=== PATIENT | female | born 1965 | race Caucasian/White ===

== ENCOUNTER → 2017-11-19 09:03 | Outpatient (CLI) | payer OTHER, SELFPAY ==
--- NOTE | 2017-11-19 09:07 | MM_ITS ---
MM Dig screening mamm BI w/CAD CAD Screening COMPARISON: Digital mammograms with CAD 10/08/2016 and 01/02/2014 INDICATION: There is no personal or family history of breast cancer TECHNIQUE: Standard CC and MLO images were obtained. R2 CAD reviewed. FINDINGS: Mild scattered fibroglandular densities are seen in the central portions of both breasts. There are couple benign-appearing calcifications in each breast and there is faint arterial calcification in each breast. There is no suspicious lesion and there are no suspicious microcalcifications. There is a stable benign-appearing nodular density left breast lower inner quadrant. IMPRESSION: Stable exam no suspicious lesion seen BI-RADS Category: 2 Benign Finding(s) RECOMMENDED FOLLOW-UP: 1YR - 1 YEAR FOLLOW-UP (A letter has been sent to the patient regarding results of the study.)
== END ==
PROVIDERS: Family Provider Emergency Medicine; PCP Emergency Medicine; Visit Provider Obstetrics & Gynecology
DX: Z12.31 Encounter for screening mammogram for malignant neoplasm of breast (principal)
CPT/HCPCS: 77067

== ENCOUNTER → 2017-11-27 10:04 | Outpatient (CLI) | payer OTHER, SELFPAY ==
--- NOTE | 2017-11-27 10:07 | XR_ITS ---
XR DEXA axial skeleton HISTORY: ITS.REASON: screening ORDERING PHYSICIAN: Shakir Prado MD PATIENT AGE: 52 years COMPARISON: None FINDINGS: The BMD measured at the Forearm Radius 33% is 0.860 g/cm squared with a T score of -0.3. This is considered normal according to the World Health Organization criteria. Fracture risk is low. The density of the left femur as a T score of 3.5. IMPRESSION: Normal bone density with low fracture risk. Suggest follow-up exam November 2019
== END ==
PROVIDERS: Family Provider Emergency Medicine; PCP Emergency Medicine; Visit Provider Obstetrics & Gynecology
DX: Z13.820 Encounter for screening for osteoporosis (principal); Z78.0 Asymptomatic menopausal state
CPT/HCPCS: 77080

== ENCOUNTER → 2017-12-30 12:25 | Outpatient (CLI) | payer OTHER, SELFPAY ==
[2017-12-30 10:58] LABS: Basophils % 0.5 % (0.1-2.0); Eosinophils # 0.2 K/mm3 (0.0-0.4); Eosinophils % 2.8 % (0.1-12.0); Hematocrit 43.7 % (37.0-47.0); Hemoglobin 13.9 g/dL (12.2-16.2); Lymphocytes # 2.6 K/mm3 (0.7-4.5); Lymphocytes % 32.2 K/mm3 (10-50); Mean Corpuscular HGB Conc 31.8 g/dL (31.8-35.4); Mean Platelet Volume 6.9 fl (7.4-10.4); Monocytes # 0.3 K/mm3 (0.1-1.0); Monocytes % 3.2 % (1.7-9.3); Neutrophils % 61.2 % (37.0-80.0); Platelet Count 306 K/mm3 (142-424); Red Blood Count 4.96 M/mm3 (4.20-5.40); Red Cell Distribution Width 14.3 % (11.5-17.5); White Blood Count 8.1 K/mm3 (4.8-10.8)
--- NOTE | 2017-12-30 12:26 | CA_ITS ---
PROCEDURE: 2-D M-mode and color Doppler study INDICATIONS FOR THE TEST: Chest pain COPD Heart MurmurX Tobacco Smoking Palpitations Fatigue Syncope Edema HypertensionXDiabetes MellitusX Rheumatic Fever SOBXDOEXObesityXXHyperlipidemiaX Family History HD Additional History PATIENT INFORMATION HEIGHT: 61 WEIGHT:194 GENDER: Female B/P:130/76 2-D/M-MODE INTERPRETATION: 2-D MEASUREMENTS OBSERVED VALUES IN CMS Right Ventricular Dimension (RVDd) 2.4 Interventricular Septum (Thickness)(IVsd) .9 Left Ventricular Internal Dimensions(LVIDd) 5.4 Left Ventricular Posterior Wall (Thickness)(LVPWd) .8 Aortic Root 2.7 Aortic Cusp Separation 1.7 Left Atrial Dimensions (LAD) 3.6 2D 1. Left atrium is mildly enlarged, left ventricle is normal size, there is mild qualitative concentric left ventricular hypertrophy, visually estimated ejection fraction 55% with no obvious regional wall motion abnormality. 2. The right atrium and right ventricle are normal size and contractility. 3. The aortic valve is minimally thickened and fibrosed. 4. The mitral and tricuspid valvular grossly normal. 5. The pulmonic valve is poorly visualized. 6. No significant pericardial effusion noted. DOPPLER INTERROGATION: Doppler interrogation of the aortic, mitral and tricuspid valvular presence of mild mitral and tricuspid regurgitation, tricuspid and jet velocity is insufficient for calculation of the right ventricular systolic pressure, grade 1 diastolic dysfunction seen with tissue Doppler evidence of raised left atrial pressure. CONCLUSION: 1. Mildly left atrium, normal left ventricular size, mild qualitative concentric left ventricular hypertrophy, visually estimated ejection fraction 55% with no obvious regional wall motion abnormality, grade 1 diastolic dysfunction seen with tissue Doppler evidence of raised left atrial pressure. 2. Mild mitral and tricuspid regurgitation 3. No significant pericardial effusion noted.
[2017-12-30 14:10] LABS: Alanine Aminotransferase 144 U/L (12-78); Albumin Level 3.5 gm/dL (3.4-5.0); Albumin/Globulin Ratio 0.9 (1.1-1.8); Alkaline Phosphatase 116 U/L (46-116); Anion Gap 13.4 mEq/L (5-15); Aspartate Amino Transferase 108 U/L (15-37); Bilirubin,Total 0.4 mg/dL (0.2-1.0); Blood Urea Nitrogen 7 mg/dL (7-18); Carbon Dioxide 26 mmol/L (21.0-32.0); Chloride 104 mmol/L (98-107); Creatinine,Serum 0.73 mg/dL (0.55-1.02); Estimated Glomerular Filt Rate 83 ml/min (>60); Free T4 (Free Thyroxine) 0.88 ng/dl (0.76-1.46); GFR (African American) 101 ML/MIN (>60); Globulin 4.1 gm/dl (1.3-3.2); Glucose 270 mg/dL (74-106); Potassium 4.4 mmoL/L (3.5-5.1); Sodium 139 mmol/L (136-145); Total Protein,Serum 7.6 gm/dL (6.4-8.2)
[2017-12-30 14:27] LABS: Hemoglobin A1C 10.4 % (0.0-7.0)
== END ==
PROVIDERS: Family Provider Emergency Medicine; PCP Emergency Medicine; Visit Provider Internal Medicine
DX: E11.9 Type 2 diabetes mellitus without complications (principal)
CPT/HCPCS: 36415; 80053; 83036; 84439; 84443; 85025; 93306

== ENCOUNTER → 2018-01-18 10:42 | Outpatient (CLI) | payer OTHER, SELFPAY ==
[2018-01-19 09:19] LABS: Hep A Ab, IgM Negative (Negative); Hepatitis B Core Antibody IgM Negative (Negative); Hepatitis B Surface Antigen Negative (Negative)
[2018-01-20 14:49] LABS: Hepatitis C Antibody 0.1 s/co ratio (0.0-0.9)
== END ==
PROVIDERS: PCP Emergency Medicine; Visit Provider Emergency Medicine
DX: R94.5 Abnormal results of liver function studies (principal)
CPT/HCPCS: 36415; 80074

== ENCOUNTER 2018-09-10 08:30 | Outpatient (RCR) | payer OTHER, SELFPAY ==
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
== END 2018-09-10 08:40 | disposition home or self-care (01) ==
LOC: PT 08:30
PROVIDERS: Visit Provider Emergency Medicine
DX: M25.562 Pain in left knee (principal)
CPT/HCPCS: 97010; 97014; 97016; 97033; 97035; 97110; 97163; G0283

== ENCOUNTER 2018-09-11 21:31 | Emergency (ER) | payer OTHER, SELFPAY ==
[2018-09-11 21:54] VITALS: BP 157/76; PULSE 77; RESP 18; TEMP 36.5; O2SAT 98; BMI 30.2
--- NOTE | 2018-09-11 22:03 | XR_ITS ---
XR knee LT 3V HISTORY: Left knee pain ITS.REASON: pain w/ ROM ORDERING PHYSICIAN: Cornelius Mcmanus MD PATIENT AGE: 53 years COMPARISON: Right knee 10/10/2015 FINDINGS: No fracture or dislocation. No lytic or blastic change. Normal mineralization. There is minor spurring of the medial tibial spine and minor joint space narrowing medially. There is mild narrowing of the patellofemoral space with minimal spurring of the superior border patella. There is no effusion. IMPRESSION: Very minor degenerative changes left knee
--- NOTE | 2018-09-11 22:26 | HMH.EDGENADL ---
ED Disposition Clinical Impression: Meniscal injury Qualifiers: Encounter type: initial encounter Laterality: left Qualified Code(s): S83.8X2A - Sprain of other specified parts of left knee, initial encounter Disposition: Home, Self-Care Condition on Discharge: Good Instructions: DI for Knee Pain Additional Instructions: use meds and see pcp and ortho for follow up Prescriptions: predniSONE [Prednisone 20mg Tab] 20 mg PO BID #10 tab Referrals: Cornelius Mcmanus MD [Primary Care Provider] - Jannette Bingham MD [Staff Physician] - - Critical Care Critical Care Time: No Attestation: On 09/11/18, the high probability of a clinically significant, sudden or life threatening deterioration of the following system(s) required my full and direct attention, intervention and personal management. The time I documented below is in addition to time spent performing reported procedures but includes the following listed in this critical care notation. Medical Decision Making - Medical Records Medical records reviewed: Yes: I reviewed the patient's medical records. - Robin Inquiry Pt receiving controlled substance: No Vital Signs: 09/11/18 21:54 Temperature 97.7 F Temperature Source Oral Pulse Rate [Right Brachial] 77 Respiratory Rate 18 Blood Pressure [Right Arm] 157/76 H Blood Pressure Mean [Right Arm] 103 02 Sat by Pulse Oximetry 98 Oxygen Delivery Method Room Air Orders (Tests/Meds): ORDERS Category Date Time Status XR knee LT 3V Stat Exams 09/11/18 22:03 Taken - Radiology Data #1 Image(s): Knee Image Reviewed: Yes I reviewed the patient's radiology image Preliminary Findings: Abnormal, No Fracture Seen General Adult HPI - General Chief complaint: PAIN Stated complaint: pain L knee Time Seen by Provider: 09/11/18 22:05 Mode of Arrival: Wheelchair Source of Information: Patient, Relative, Medical Record Limitations: No Limitations Description of Symptoms (Recalled from ER Triage Doc. by RN): PATIENT HURT HER KNEE APPROX 5 WEEKS AGO; WAS SEEN IN 'S OFFICE, HAD XRAY AND HAS BEEN HAVING PHYSICAL THERAPY 2 TIMES A WEEK FOR 4 WEEKS - History of Present Illness HPI narrative: has pain lt knee over the last few weeks with more pain over the last few days - inc swelling and dec rom - has done physical therapy Onset (ago): day(s) Location: lower extremity Radiation: extremity Severity: moderate Quality: constant Associated symptoms: denies other symptoms Treatments prior to arrival: NSAID - Related Data Home Medications Medication Instructions Recorded Confirmed vit C 150 mg-vit E 30 unit-lutein 1 cap PO QAM 12/23/17 08/09/18 5 [id number] 3 150 mg capsule Aspirin [Low Dose Aspirin EC] 81 mg PO DAILY 01/11/18 08/09/18 Vitamin E Mixed [Vitamin E] 800 unit PO DAILY 01/11/18 08/09/18 naproxen 500 mg tablet 500 mg PO BID 08/09/18 08/09/18 Previous Rx's Medication Instructions Recorded bisoprolol fumarate 10 mg tablet 10 mg PO DAILY 90 Days #90 tab 02/05/18 estradiol 1 mg tablet 1 mg PO DAILY #90 tab 02/05/18 furosemide 20 mg tablet 20 mg PO QAM #90 tab 02/05/18 glipizide 5 mg tablet 2.5 mg PO BID #180 tab 02/05/18 levothyroxine 25 mcg tablet 25 mcg PO DAILY #90 tab 02/05/18 lisinopril 40 mg tablet 40 mg PO DAILY #90 tab 02/05/18 metformin 1,000 mg tablet 1,000 mg PO BID #180 tab 02/05/18 simvastatin 20 mg tablet 20 mg PO QPM #90 tab 02/05/18 spironolactone 25 mg tablet 25 mg PO DAILY #90 tab 02/05/18 triamterene 37.5 1 cap PO QAM #90 cap 02/05/18 mg-hydrochlorothiazide 25 mg capsule venlafaxine ER 75 mg 75 mg PO QHS #90 cap 02/05/18 capsule,extended release 24 hr zinc 50 mg tablet 50 mg PO BID #180 tab 02/05/18 loratadine 10 mg tablet 10 mg PO DAILY #30 tab 07/18/18 predniSONE [Prednisone 20mg 20 mg PO BID #10 tab 09/11/18 Tab] Allergies Allergy/AdvReac Type Severity Reaction Status Date / Time metoprolol [From TOPROL XL] Allergy Unkn
--- NOTE | 2018-09-11 22:32 | ED_ITS ---
ED Disposition Clinical Impression: Meniscal injury Qualifiers: Encounter type: initial encounter Laterality: left Qualified Code(s): S83.8X2A - Sprain of other specified parts of left knee, initial encounter Disposition: Home, Self-Care Condition on Discharge: Good Instructions: DI for Knee Pain Additional Instructions: use meds and see pcp and ortho for follow up Prescriptions: predniSONE [Prednisone 20mg Tab] 20 mg PO BID #10 tab Referrals: Cornelius Mcmanus MD [Primary Care Provider] - Jannette Bingham MD [Staff Physician] - - Critical Care Critical Care Time: No Attestation: On 09/11/18, the high probability of a clinically significant, sudden or life threatening deterioration of the following system(s) required my full and direct attention, intervention and personal management. The time I documented below is in addition to time spent performing reported procedures but includes the following listed in this critical care notation. Medical Decision Making - Medical Records Medical records reviewed: Yes: I reviewed the patient's medical records. - Robin Inquiry Pt receiving controlled substance: No Vital Signs: 09/11/18 21:54 Temperature 97.7 F Temperature Source Oral Pulse Rate [Right Brachial] 77 Respiratory Rate 18 Blood Pressure [Right Arm] 157/76 H Blood Pressure Mean [Right Arm] 103 02 Sat by Pulse Oximetry 98 Oxygen Delivery Method Room Air Orders (Tests/Meds): ORDERS Category Date Time Status XR knee LT 3V Stat Exams 09/11/18 22:03 Taken - Radiology Data #1 Image(s): Knee Image Reviewed: Yes I reviewed the patient's radiology image Preliminary Findings: Abnormal, No Fracture Seen General Adult HPI - General Chief complaint: PAIN Stated complaint: pain L knee Time Seen by Provider: 09/11/18 22:05 Mode of Arrival: Wheelchair Source of Information: Patient, Relative, Medical Record Limitations: No Limitations Description of Symptoms (Recalled from ER Triage Doc. by RN): PATIENT HURT HER KNEE APPROX 5 WEEKS AGO; WAS SEEN IN 'S OFFICE, HAD XRAY AND HAS BEEN HAVING PHYSICAL THERAPY 2 TIMES A WEEK FOR 4 WEEKS - History of Present Illness HPI narrative: has pain lt knee over the last few weeks with more pain over the last few days - inc swelling and dec rom - has done physical therapy Onset (ago): day(s) Location: lower extremity Radiation: extremity Severity: moderate Quality: constant Associated symptoms: denies other symptoms Treatments prior to arrival: NSAID - Related Data Home Medications Medication Instructions Recorded Confirmed vit C 150 mg-vit E 30 unit-lutein 1 cap PO QAM 12/23/17 08/09/18 5 [id number] 3 150 mg capsule Aspirin [Low Dose Aspirin EC] 81 mg PO DAILY 01/11/18 08/09/18 Vitamin E Mixed [Vitamin E] 800 unit PO DAILY 01/11/18 08/09/18 naproxen 500 mg tablet 500 mg PO BID 08/09/18 08/09/18 Previous Rx's Medication Instructions Recorded bisoprolol fumarate 10 mg tablet 10 mg PO DAILY 90 Days #90 tab 02/05/18 estradiol 1 mg tablet 1 mg PO DAILY #90 tab 02/05/18 furosemide 20 mg tablet 20 mg PO QAM #90 tab 02/05/18 glipizide 5 mg tablet 2.5 mg PO BID
[2018-09-11 22:37] VITALS: BP 152/76; PULSE 80; RESP 16; TEMP 36.5; O2SAT 98
== END 2018-09-11 22:44 | disposition home or self-care (01) ==
PROVIDERS: Emergency Provider Emergency Medicine; PCP Emergency Medicine
DX: S83.8X2A Sprain of other specified parts of left knee, initial encounter (principal); E11.9 Type 2 diabetes mellitus without complications; K21.9 Gastro-esophageal reflux disease without esophagitis; I10 Essential (primary) hypertension; Z51.81 Encounter for therapeutic drug level monitoring
CPT/HCPCS: 29505; 73562; 96372; 99283

== ENCOUNTER → 2018-10-15 12:17 | Outpatient (CLI) | payer OTHER, SELFPAY ==
--- NOTE | 2018-10-15 12:51 | MR_ITS ---
MR knee LT wo con Ordering Physician: Alex Navarro MD Patient Age: 53 years: Female HISTORY: ITS.REASON: evaluate for meniscal tear Left knee pain for 6 weeks . Pain is medial and anterior. Swelling at the left knee . No known injury. TECHNIQUE: Multiplanar multisequence imaging performed on 1.5 Jaelyn MRI. COMPARISON :Plain films left knee September 11, 2018 FINDINGS Medial meniscal tear. Prominent defect mid body medial meniscus.. Prominent radial tear withover 5 mm gap here at mid body. This radio tear involving entire width of the meniscus (On sagittalslice 7 and axial slice 18) . There also question be slight anterior displacement of the generous anterior horn sagittal image 10-12. Cannot totally excluded additional displaced meniscal fragment here given the generous volume of this slight anteriorly displaced appearing anterior horn towards anterior meniscal root. Medial compartment: : Diffuse chondral thinning at medial compartment most evident central weightbearing surface- chondral thinning both involving femoral condyle & tibial plateau.... Small osteochondral irregularity with slight increased signal at mid tibial plateau weightbearing surface. Joint effusion. Moderate most evident at suprapatellar bursa Lateral compartment cartilage is fairly well maintained. Lateral meniscus intact no discrete tear Patellofemoral joint. Patella normal position Cartilage fairly well-maintained at posterior patella-although there may be some minimal chondral scuffing midportion patella, at mid aspect of the vertical ridge. Subtle signal variations patellar cartilage may reflect some mild degenerative changes or chondromalacia. ACL and PCL intact. There is an insertional signal irregularity or geode, inferior to the PCL insertion at posterior tibia. Noted but not felt to be of significance. Medial collateral ligament appears intact. Scant edema overlying the MCL Lateral collateral ligament upper normal signal near its femoral insertion but intact. Quadriceps intact. Patellar tendon intact.- There is mild edema and fluid overlying the patellar tendon and tibial tubercle. Most likely deep dependent fluid rather than inflammation but requires correlation. IMPRESSION...... 1. Prominent medial meniscal tear . Prominent radial tear type defect mid body of the medial meniscus. 2. Chondral thinning at the medial compartment both sides the joint-most evident at central weightbearing portion Small osteochondral signal focus noted tibial plateau associated. 3. Moderate joint effusion 4. Other minor observations and comments in text
== END ==
PROVIDERS: PCP Emergency Medicine; Visit Provider Orthopaedic Surgery
DX: M25.562 Pain in left knee (principal); G89.29 Other chronic pain
CPT/HCPCS: 73721

== ENCOUNTER → 2018-11-01 11:15 | Outpatient (CLI) | payer OTHER, SELFPAY ==
--- NOTE | 2018-11-01 11:58 | XR_ITS ---
XR chest 2V HISTORY: Hypertension ITS.REASON: HTN ORDERING PHYSICIAN: Alex Navarro MD PATIENT AGE: 53 years COMPARISON: 01/19/2014 FINDINGS: The cardiomediastinal silhouette and pulmonary vascularity are within normal limits. The lungs are clear without infiltrates, suspicious nodules, or pleural effusions. There is evidence of old granulomatous disease No acute bony abnormalities. IMPRESSION: No change with no acute finding
[2018-11-01 12:35] LABS: Basophils # 0.1 K/mm3 (0-0.2); Basophils % 0.8 % (0.1-2.0); Eosinophils # 0.2 K/mm3 (0.0-0.4); Eosinophils % 2.7 % (0.1-12.0); Hematocrit 40.5 % (37.0-47.0); Hemoglobin 12.9 g/dL (12.2-16.2); Lymphocytes # 3.1 K/mm3 (0.7-4.5); Mean Corpuscular HGB Conc 31.8 g/dL (31.8-35.4); Mean Corpuscular Hemoglobin 27.6 pg (27.0-31.2); Monocytes # 0.4 K/mm3 (0.1-1.0); Monocytes % 4.1 % (1.7-9.3); Neutrophils # 4.9 K/mm3 (1.8-7.8); Neutrophils % 56.4 % (37.0-80.0); Platelet Count 357 K/mm3 (142-424); Red Blood Count 4.66 M/mm3 (4.20-5.40); Red Cell Distribution Width 14.6 % (11.5-17.5); White Blood Count 8.6 K/mm3 (4.8-10.8)
[2018-11-01 13:14] LABS: Anion Gap 14.5 mEq/L (5-15); Blood Urea Nitrogen 10 mg/dL (7-18); Calcium 9.2 mg/dL (8.5-10.1); Carbon Dioxide 27 mmol/L (21.0-32.0); Chloride 105 mmol/L (98-107); Creatinine,Serum 0.88 mg/dL (0.55-1.02); Estimated Glomerular Filt Rate 67 ml/min (>60); GFR (African American) 81 ML/MIN (>60); Glucose 139 mg/dL (74-106); Potassium 4.5 mmoL/L (3.5-5.1); Sodium 142 mmol/L (136-145)
== END ==
PROVIDERS: PCP Emergency Medicine; Visit Provider Orthopaedic Surgery
DX: Z00.00 Encounter for general adult medical examination without abnormal findings (principal); S89.92XS Unspecified injury of left lower leg, sequela
CPT/HCPCS: 36415; 71046; 80048; 83036; 85025

== ENCOUNTER 2018-12-02 12:35 | Outpatient (RCR) | payer OTHER, SELFPAY ==
--- NOTE | 2018-12-02 13:49 | HMH.PTOPEV ---
PT Outpatient Evaluation Rehab PT Outpatient Evaluation Start: 12/02/18 13:38 Freq: Status: Active Protocol: Document 12/02/18 13:38 RA (Rec: 12/02/18 13:49 RA [id number]) Electronically Signed By Durga Powell, PT 12/02/18 13:38 Outpatient Therapy Subjective History Subjective History Patient is a 53 year old female presenting to outpatient PT with reports of L post surgical knee pain S/P L PMM chondroplasty performed on 11/16/18. Pt reports initial onset of knee pain 2 months ago. She woke up with knee pain. Comorbidites include hx of heart murmur, cholecystectomy, hysterectomy, OA and diabetes. Chief Complaint Pain,Stiff,Swelling,Weakness Symptom Type Ache,Sharp,Tingling Symptoms Relieved By Rest/Positioning,Ice Symptoms Aggravated By Standing,Bending/Stooping, Physical Activity,Walking Prior Functional Limitations None Current Functional Limitations Lifting,Housework,Standing, Squatting,Recreation Activity, Walking,Stairs Symptom Description Constant but Variable Level of pain today (0-10) 3 Pain scale - at its best (0-10) 2 Pain scale - at its worst (0-10) 6 Hip/Knee Eval Gait Observation General Gait Pattern Observation Decrease Weight Bear (L) Assistive Device Assistive Devices None / NA Palpation Tenderness left Knee Palpation Finding Tenderness Knee Palpation Overall Comment medial joint line MMT Hip Flexion Strength Grade 4- Good- Hip Abduction Strength Grade 4- Good- Hip Adduction Strength Grade 4- Good- Hip External Rotation Strength Grade 3+ Fair+ Hip Internal Rotation Strength Grade 3+ Fair+ Knee Extension Strength Grade 4- Good- Knee Flexion Strength Grade 4- Good- ROM Hip ROM Reason Not Measured Within Functional Limits Knee Extension Active Range of Motion ( -7 degrees) Knee Flexion Active Range of Motion ( 111 degrees) Special Tests Knee Anterior Drawer Test Negative Left Knee Cast Test Positive Left Knee Anterior Christopher Test Negative Left Knee Pivot Shift Test Negative Left Knee Valgus Stress Test Negative Left Knee Varus Stress Test Negative Left Outpatient Therapy Assessment Impairments Problems/Impairmments Palpation Tenderness,Impaired Range of Motion,Impaired
== END 2018-12-02 12:40 | disposition home or self-care (01) ==
LOC: PT 12:35
PROVIDERS: Visit Provider Orthopaedic Surgery
DX: S83.242D Other tear of medial meniscus, current injury, left knee, subsequent encounter (principal); M17.12 Unilateral primary osteoarthritis, left knee
CPT/HCPCS: 97163

== ENCOUNTER 2019-02-04 15:30 | Outpatient (RCR) | payer OTHER, SELFPAY ==
--- NOTE | 2019-01-10 09:33 | HMH.PTOPEV ---
PT Outpatient Evaluation Rehab PT Outpatient Evaluation Start: 01/10/19 09:02 Freq: Status: Active Protocol: Document 01/10/19 09:26 MAMIE (Rec: 01/10/19 09:33 PHORTINY [id number]) Electronically Signed By Shaggy Medina, PT 01/10/19 09:26 Outpatient Therapy Subjective History Subjective History Pt is 53 yowf who presents with c/o contiuned pain and stiffness ~ 7 wks S/P Left partial medial menisectomy with chondroplasty via arthroscopy. She reports pain is not as bad as it was, but she continues to feel worse with walking and stairs. She ambulates without assistive device, but noticably antalgic gait. She was initially evaluated 38 days ago for therapy, but never returned for treatment. She has PMH of anxiety, DM-II, Gerd, HL, HTN, lung disease, CCY, hysterectomy, and heart murmur . Chief Complaint Pain,Stiff Symptom Type Ache,Sharp Symptoms Relieved By Rest/Positioning Symptoms Aggravated By Walking Prior Functional Limitations Walking,Stairs Current Functional Limitations Walking,Stairs Symptom Description Intermittent,Activity Dependent Level of pain today (0-10) 1 Pain scale - at its worst (0-10) 5 Hip/Knee Eval Gait Observation General Gait Pattern Observation Antalgic Gait,Decrease Weight Bear (L) Palpation Tenderness left Knee Palpation Finding Tenderness Knee Palpation Overall Comment medial and lateral jt line MMT Hip Flexion Strength Grade 4 Good Hip Abduction Strength Grade 4 Good Hip Adduction Strength Grade 4 Good Hip Extension Strength Grade 4 Good Hip External Rotation Strength Grade 4 Good Hip Internal Rotation Strength Grade 4 Good ROM Knee Extension Active Range of Motion ( -4 degrees) Knee Extension Passive Range of Motion ( -2 degrees) Knee Flexion Active Range of Motion ( 4-115 degrees) Knee Flexion Passive Range of Motion ( 2-117 degrees) Outpatient Therapy Assessment Impairments Problems/Impairmments Palpation Tenderness,Impaired Range of Motion,Impaired Strength,Impaired Gait Pattern
== END 2019-02-04 15:35 | disposition home or self-care (01) ==
LOC: PT 15:30
PROVIDERS: Visit Provider Orthopaedic Surgery
DX: M17.12 Unilateral primary osteoarthritis, left knee (principal)
CPT/HCPCS: 97010; 97014; 97110; 97163; G0283

== ENCOUNTER → 2020-08-06 13:58 | Outpatient (CLI) | payer MEDICARE, MEDICAID, SELFPAY ==
[2020-08-06 14:28] LABS: Chloride 99 mmol/L (98-107); Potassium 4.1 mmoL/L (3.5-5.1); Sodium 138 mmol/L (136-145)
[2020-08-06 14:31] LABS: Alanine Aminotransferase 81 U/L (12-78); Albumin/Globulin Ratio 1.1 (1.1-1.8); Alkaline Phosphatase 102 U/L (38-126); Anion Gap 12.1 mEq/L (5-15); Aspartate Amino Transferase 60 U/L (14-36); Bilirubin,Total 0.5 mg/dl (0.2-1.3); Blood Urea Nitrogen 19 mg/dl (7-17); Carbon Dioxide 31 mmol/L (22.0-30.0); Cholesterol 197 mg/dl (140-200); Estimated Glomerular Filt Rate 86 ml/min (>60); GFR (African American) 104 ML/MIN (>60); Globulin 3.5 g/dL (1.3-3.2); Total Protein,Serum 7.5 g/dl (6.3-8.2); Triglycerides 213 mg/dl (30-150); VLDL Cholesterol 43 mg/dL (0-40)
[2020-08-06 14:32] LABS: Calcium 9.9 mg/dl (8.4-10.2); Chol/HDL Ratio 4.8 (1-3.5); Glucose 166 mg/dl (74-100); HDL Cholesterol 41 mg/dl (40-60)
[2020-08-06 14:48] LABS: Basophils # 0.1 K/mm3 (0-0.2); Basophils % 0.6 % (0.1-2.0); Eosinophils # 0.2 K/mm3 (0.0-0.4); Eosinophils % 1.9 % (0.1-12.0); Hematocrit 43.8 % (37.0-47.0); Hemoglobin 14.2 g/dL (12.2-16.2); Lymphocytes # 3.6 K/mm3 (0.7-4.5); Lymphocytes % 40.2 % (10-50); Mean Corpuscular HGB Conc 32.4 g/dL (31.8-35.4); Mean Corpuscular Hemoglobin 28.1 pg (27.0-31.2); Mean Corpuscular Volume 86.7 fl (81-99); Mean Platelet Volume 8.5 fl (7.4-10.4); Monocytes # 0.4 K/mm3 (0.1-1.0); Monocytes % 4.2 % (1.7-9.3); Neutrophils # 4.8 K/mm3 (1.8-7.8); Neutrophils % 53.2 % (37.0-80.0); Platelet Count 366 K/mm3 (142-424); Red Blood Count 5.05 M/mm3 (4.20-5.40); T4 (Thyroxine) 9.3 ug/dl (5.53-11.0)
[2020-08-06 14:50] LABS: Creatinine,Urine Random 105 mg/dL (Not Estab.)
[2020-08-06 15:02] LABS: Thyroid Stimulating Hormone 4.12 uIU/mL (0.465-4.68)
[2020-08-06 15:22] LABS: 25-OH Vitamin D, Total < 12.8 ng/mL (30-100)
[2020-08-06 16:06] LABS: Microalbumin < 6.000 mg/L (0-16.7)
[2020-08-06 17:36] LABS: Hemoglobin A1C > 14.0 % (4.0-6.0)
== END ==
PROVIDERS: Visit Provider Emergency Medicine
DX: E11.9 Type 2 diabetes mellitus without complications (principal); I10 Essential (primary) hypertension; E55.9 Vitamin D deficiency, unspecified; Z79.84 Long term (current) use of oral hypoglycemic drugs
CPT/HCPCS: 80053; 80061; 82043; 82306; 82570; 83036; 84436; 84443; 85025

== ENCOUNTER → 2020-08-10 08:12 | Outpatient (CLI) | payer MEDICARE, MEDICAID, SELFPAY ==
[2020-08-11 13:02] LABS: Hep A Ab, IgM Negative (Negative); Hepatitis B Core Antibody IgM Negative (Negative); Hepatitis B Surface Antigen Negative (Negative)
[2020-08-11 13:42] LABS: Hepatitis C Antibody <0.1 s/co ratio (0.0-0.9)
== END ==
PROVIDERS: Visit Provider Emergency Medicine
DX: R53.83 Other fatigue (principal); R74.8 Abnormal levels of other serum enzymes
CPT/HCPCS: 36415; 80074

== ENCOUNTER → 2020-08-16 09:29 | Outpatient (CLI) | payer MEDICARE, MEDICAID, SELFPAY ==
--- NOTE | 2020-08-16 09:31 | CA_ITS ---
APPROVED REPORT EXAM: Comprehensive 2D, Doppler, and color-flow Echocardiogram Heat Treat Worker: PHYLLIS Voss, RVS Ht: 5 ft 1 in Wt: 177lbs BSA: 1.79 HR: 65 bpm BP: 1161/68 mmHg Indications: SOA, MURMUR, HTN, HLD, 2D Dimensions Aortic Root 2.63 cm LA Volume 54.00 mL Left Atrium 3.51 cm LA Volume Index 30.20 mL/m2 (M/F) 16-34 LVOT 1.87 cm (M/F) 1.5-2.5 M-Mode Dimensions RVDd 2.58 cm (0.9-2.6) LA Diam 3.98 cm (1.9-4.0) LVDd 4.66 cm (3.5-5.7) Ao Diam 2.87 cm (2.0-3.7) LVDs 2.86 cm (3.5-5.7) IVSd 1.07 cm (0.6-1.1) PWd 0.97 cm (0.6-1.1) EF (Teich) 69.00% EPSs 0.68 cm FS 38.60% EDV (Teich) 100.30 mL TAPSE 1.79 (<1.7) ESV (Teich) 31.10 mL LV Diastology E Decel Time 223.00 (160-240 msec) E/A Ratio 1.24 MED E' 7.40 (< 7 cm/sec) MED A' 6.80 cm/s E'/MED E' Ratio 12.82 (>14) LAT E' 10.00 (<10 cm/sec) LAT A' 7.80 cm/s E/LAT E' Ratio 9.49 (>14) Aortic Valve LVOT Max 115.00 (70-110 cm/s) LVOT VTI 25.35 cm AoV Peak Stef. 220.00 (50-130 cm/s) AO Peak GR. 19.40 mmHg AO Mean GR. 10.70 (<5 mmHg) AO VTI 45.03 (18-25 cm) RODRÍGUEZ (VTI) 1.55 (2.5-4.5 cm2) Mitral Valve MV E Max Stef. 95.00 (40-130 cm/s) MV A Velocity 76.00 (40-130 cm/s) E/A Ratio 1.24 MV Decel. Time 223.00 (160-240 ms) MV Mean Gr. 1.80 (<2mmHg) MV PHT 65.00 ms Pulmonary Valve PV Peak Velocity 79.00 (50-150 cm/s) MI End VMAX 244.00 cm/s Tricuspid Valve TR P. Velocity 260.00 cm/s RAP Estimate 10.00 mmHg RVSP 37.00 mmHg Left Ventricle Left atrium is mildly enlarged, left ventricle is normal size, mild concentric left ventricular hypertrophy, visually estimated ejection fraction 55% with no regional wall motion abnormality, grade 1 diastolic dysfunction seen without tissue Doppler evidence of raise left atrial pressure. Right Ventricle Right atrium and right ventricle are normal size and contractility. Aortic Valve Aortic valve is thickened and calcified with mild restriction in the leaflet mobility, mean gradient across valve is 11 mmHg, valve area 1.6 cm??? represents mild aortic stenosis. There is no aortic insufficiency. Mitral Valve Mitral valve grossly normal, there is trace mitral regurgitation. Tricuspid Valve Tricuspid grossly normal, there is trace tricuspid regurgitation. Pulmonic Valve Pulmonic valve is poorly visualized. Great Vessels Aortic root is normal size. Pericardium No significant pericardial effusion noted. Conclusion 1. Mildly enlarged left atrium, normal left ventricular size, mild concentric left ventricular hypertrophy, visually estimated ejection fraction 55% with no regional wall motion abnormality, grade 1 diastolic dysfunction seen without tissue Doppler evidence of raise left atrial pressure. 2. Thickened and calcified aortic valve with mild aortic stenosis, valve area is 1.6 cm???. There is no aortic insufficiency. 3. Trace mitral and tricuspid regurgitation. 4. No significant pericardial effusion noted. Electronically signed by : Michael Luong, 08/16/2020 16:51:41
--- NOTE | 2020-08-16 09:35 | MM_ITS ---
PROCEDURE: MM DIG SCREENING MAMM BI W/CAD Digital Breast Tomosynthesis Included CLINICAL INDICATION: breast cancer screening There is no personal or family history of breast cancer. There has been a previous biopsy left breast for benign disease. The patient currently is on estrogen. COMPARISON: [facility] DIG MAMM-SCREEN MERON from 01/02/2014 MG [facility] DIG MAMM-SCREEN [facility]ON W/CAD from 10/08/2016 [facility] MM Dig screening mamm BI w/CAD from 11/19/2017 TECHNIQUE: Standard CC and MLO images and 3D Tomosynthesis was obtained. R2 CAD reviewed. FINDINGS: Moderate scattered fibroglandular densities are seen in both breast. There has been some fatty replacement of the breast parenchyma since the previous exams. There are couple of benign calcifications in each breast and there is arterial calcification in each breast. There are no CAD markings. There is no suspicious lesion in either breast and no suspicious microcalcifications. IMPRESSION: Fibrofatty parenchyma with no suspicious lesions seen BI-RAD Category: 2 Benign Finding(s) FOLLOW-UP: 1YR 1 Year Follow-up (A letter has been sent to the patient regarding results of the study.) Dictated by: Dr. Jaron Menendez MD 08/18/2020 14:09 Dr. Jaron Menendez MD in [place] 08/18/2020 14:09
== END ==
PROVIDERS: PCP Emergency Medicine; Visit Provider Emergency Medicine
DX: Z12.31 Encounter for screening mammogram for malignant neoplasm of breast (principal); R06.02 Shortness of breath; I10 Essential (primary) hypertension
CPT/HCPCS: 77063; 77067; 93306

== ENCOUNTER → 2020-12-04 08:47 | Outpatient (CLI) | payer MEDICAID, SELFPAY ==
[2020-12-04 09:23] LABS: Basophils # 0.1 K/mm3 (0-0.2); Eosinophils # 0.3 K/mm3 (0.0-0.4); Eosinophils % 3.1 % (0.1-12.0); Hematocrit 42.1 % (37.0-47.0); Hemoglobin 13.9 g/dL (12.2-16.2); Lymphocytes # 2.9 K/mm3 (0.7-4.5); Lymphocytes % 36.4 % (10-50); Mean Corpuscular Hemoglobin 29.4 pg (27.0-31.2); Mean Platelet Volume 7.6 fl (7.4-10.4); Monocytes # 0.3 K/mm3 (0.1-1.0); Monocytes % 3.3 % (1.7-9.3); Neutrophils # 4.5 K/mm3 (1.8-7.8); Neutrophils % 56.2 % (37.0-80.0); Platelet Count 303 K/mm3 (142-424); Red Blood Count 4.73 M/mm3 (4.20-5.40); Red Cell Distribution Width 14.1 % (11.5-17.5); White Blood Count 7.9 K/mm3 (4.8-10.8)
[2020-12-04 10:03] LABS: Chloride 102 mmol/L (98-107); Potassium 3.9 mmoL/L (3.5-5.1); Sodium 140 mmol/L (136-145)
[2020-12-04 10:05] LABS: Alanine Aminotransferase 94 U/L (12-78); Albumin Level 4.2 g/dl (3.5-5.0); Albumin/Globulin Ratio 1.3 (1.1-1.8); Alkaline Phosphatase 111 U/L (38-126); Anion Gap 12.9 mEq/L (5-15); Aspartate Amino Transferase 77 U/L (14-36); Bilirubin,Total 0.7 mg/dl (0.2-1.3); Blood Urea Nitrogen 8 mg/dl (7-17); Carbon Dioxide 29 mmol/L (22.0-30.0); Estimated Glomerular Filt Rate 103 ml/min (>60); GFR (African American) 125 ML/MIN (>60); Globulin 3.3 g/dL (1.3-3.2); Total Protein,Serum 7.5 g/dl (6.3-8.2)
[2020-12-04 10:06] LABS: Chol/HDL Ratio 4.6 (1-3.5); Cholesterol 188 mg/dl (140-200); Glucose 315 mg/dl (74-100); HDL Cholesterol 41 mg/dl (40-60); Triglycerides 196 mg/dl (30-150); VLDL Cholesterol 39 mg/dL (0-40)
[2020-12-04 10:17] LABS: Direct LDL Cholesterol 97.75 mg/dL (100-129)
[2020-12-04 10:23] LABS: 25-OH Vitamin D, Total 24.6 ng/mL (30-100)
[2020-12-04 10:37] LABS: Thyroid Stimulating Hormone 3.44 uIU/mL (0.465-4.68)
[2020-12-05 11:38] LABS: C-Peptide 3.3 ng/mL (1.1-4.4)
== END ==
PROVIDERS: Visit Provider Nurse Practitioner Family
DX: I11.9 Hypertensive heart disease without heart failure (principal); E11.9 Type 2 diabetes mellitus without complications; E78.5 Hyperlipidemia, unspecified; E55.9 Vitamin D deficiency, unspecified; E66.9 Obesity, unspecified; Z68.34 Body mass index [BMI] 34.0-34.9, adult; Z79.84 Long term (current) use of oral hypoglycemic drugs
CPT/HCPCS: 36415; 80053; 80061; 82306; 83036; 84436; 84443; 84681; 85025

== ENCOUNTER → 2021-02-20 06:19 | Outpatient (CLI) | payer SELFPAY ==
--- NOTE | 2021-02-20 06:21 | CT_ITS ---
PROCEDURE: CT HEART W CALCIUM SCORE CLINICAL HISTORY: CP/dyspnea COMPARISON: CT ABDPELW/O CT ABD PELVIS W/O CONTRAST from 01/10/2014 TECHNIQUE: Axial images obtained with sagittal and coronal reformats. All CT scans at the facility use one or more dose reduction, viz: automated exposure control, ma/kV adjustment per patient size (including targeted exams where dose is matched to indication, i.e. head), or iterative reconstruction technique. FINDINGS: The coronary artery calcium score is 2. Minimal calcific plaque burden with low cardiovascular disease risk. There is a small hiatal hernia. Minimal aortic valve calcification noted. There is minimal nodularity in the left CP angle measuring 5 mm nonspecific and may be due to an area of scarring not significantly changed from 01/10/2014. There are degenerative changes in the thoracic spine with spurring anteriorly IMPRESSION: Minimal calcific plaque burden with low cardiovascular disease risk Dictated by: Clemente Ybarra MD 02/20/2021 17:24 Clemente Ybarra MD in [place] 02/20/2021 17:24
--- NOTE | 2021-02-20 06:23 | CA_ITS ---
APPROVED REPORT Exam: Pharmacologic Technologist: Dalia Bergman, Ht: 5 ft 1 in Wt: 181 lbs BSA: 1.81 m2 HR: 55 bpm BP: 194/71 mmHg Medical History Medications: Levothyroxine,,,,, Simvastatin,,,,, Glipizide,,,,, Estradiol,,,,, SpirOLACTONE,,,,, Norvasc,,,,, Januvia,,,,, Bisprolol,,,,, LoraTADINE,,,,, TrULicity,,,,, VenlaDFAXINE,,,,, Furosemide,,,,, Stress Test Details Test: LEXISCAN HR Resting HR: 61 bpm Max Heart Rate (APMHR): 162.663186 bpm Max HR Achieved: 111 bpm Target HR (85% APMHR): 137.085126 bpm % of APMHR: 68.52 Recovery HR: 80 bpm BP Resting BP: 194/71 mmHg Max BP: 194/71 mmHg Recovery BP: 172.0/80.0 mmHg ECG Resting ECG: Sinus hermann, NS T wave abns in anterolateral leads Clinical Exercise duration: 04:00 min Highest Stage Achieved: Exercise capacity: 1.0 METs Stress ECG Conclusion Symptoms: SOA, lightheaded. No CP. Arrythmias/Ectopy: None. ST-T Changes: NS T wave changes inferiorly. Conclusion: Unremarkable Lexiscan stress. Myoview images reported separately. Test Summary REST . . . . . . . Resting REST 02:58 . . 61 . 194/ 71 . . Stage 1 . . . . . . . Cardiolite injected Stage 1 01:00 . . 100 . . . . Stage 2 01:00 . . 107 . 194/ 92 . . Stage 3 01:00 . . 93 . 184/ 93 . . Stage 4 01:00 . . 87 . 161/ 85 . Stop exercise at 04:00 RECOVERY 01:00 . . 88 . . . . RECOVERY 02:00 . . 90 . 160/ 84 . . RECOVERY 03:00 . . 82 . 160/ 84 . . RECOVERY 03:20 . . 81 . 172/ 80 . . Electronically signed by : Michael Luong MD 02/21/2021 10:52:21
--- NOTE | 2021-02-20 06:23 | NM_ITS ---
APPROVED REPORT Exam: Nuclear Stress Test Indication: HTN, D.M., HYPERLIPIDEMIA, FM HX., C.P., SOB, PALPITATIONS, SYNCOPE, FATIGUE Patient Location: Outpatient Stress Tech: [facility] Tech:Alexandra Contreras, ARRT RT (R)(N)(M) Ht: 5 ft 1 in Wt: 164 lbs Bra Size: 40D HR: 55 bpm BP: 194/71 mmHg BSA: 1.74 m2 BMI: 30.9 History: HTN, D.M., HYPERLIPIDEMIA, FM HX., C.P., SOB, PALPITATIONS, SYNCOPE, FATIGUE Procedure: Patient received a 0.4 mg of intravenous Lexiscan, resting heart rate 55 bpm, resting blood pressure 194/71 mmHg, with Lexiscan maximum heart rate achived was 107 bpm which is Less than 85 % of the maximum predicted heart rate and blood pressure was 194/92 mmHg. With Lexiscan, patient denied any complaint of chest pain. Electrocardiogram Resting electrocardiogram showed sinus rhythm nonspecific ST-T changes, with Lexiscan there is less than 1.[address] segment depression noted from the baseline EKG. The EKG portion of the Lexiscan is nondiagnostic. Cardiac Stress and Resting SPECT Images: Cardiac Stress and Resting SPECT images were obtained using technetium 99m Myoview 30.0 mCi stress and 10.89 mCi at rest. Gated SPECT for analysis of segmental wall motion and calculation of the ejection fraction also done. Prone images were also obtained. Cardiac stress and resting SPECT images show uniform myocardial activity without segmental perfusion abnormality, computer derived ejection fraction is 61% with no regional wall motion abnormality, right ventricle is normal size and contractility. Conclusion: 1. The EKG portion of the Lexiscan is nondiagnostic. 2. No scintigraphic evidence of reversible ischemia seen, computer derived ejection fraction 61% with no regional wall motion abnormality, right ventricle is normal size and contractility. 3. Normal Lexiscan Myoview study. Electronically signed by : Michael Luong MD 02/21/2021 10:55:38
--- NOTE | 2021-02-20 08:53 | HMH.ITSHM ---
Current Home Medications as stated by this patient Hailey Casetllanos or merchandising representative. []ZINC VITAMIN C VENLAFAXINE SPIRONOLACTONE SITAGLIPTIN SIMVASTATIN LEVOTHYROXINE GLIPIZIDE FUROSEMIDE ESTRADIOL VITAMIN D2 DULAGLUTIDE VITAMIN D3 BISOPROLOL AMLODIPINE VITAMIN E LORATADINE
== END ==
PROVIDERS: PCP Emergency Medicine; Visit Provider Internal Medicine Cardiovascular Disease
DX: Z13.6 Encounter for screening for cardiovascular disorders (principal)
CPT/HCPCS: 75571; 78452; 93017; A9502; J2785

== ENCOUNTER → 2021-02-20 06:26 | Outpatient (CLI) | payer MEDICAID, SELFPAY ==
--- NOTE | 2021-02-20 06:27 | CA_ITS ---
APPROVED REPORT Wastewater Project Engineer: Keri Woods RCS, RVS Laterality: Bilateral Study Quality: Fair Indications: bruits Risk Factors Hypertension: Hyperlipidemia Doppler Spectral Velocity Analysis ECA (R) 86.60/12.30 cm/s ECA (L) 59.90/7.00 cm/s dICA (R) 73.20/27.80 cm/s dICA (L) 116.00/36.70 cm/s Kiesha (R) 63.60/18.20 cm/s Kiesha (L) 54.00/18.70 cm/s pICA (R) 48.20/9.20 cm/s pICA (L) 66.80/10.20 cm/s dCCA (R) 45.40/9.10 cm/s dCCA (L) 69.50/11.20 cm/s pCCA (R) 63.60/7.00 cm/s pCCA (L) 89.30/15.50 cm/s Vert (R) 33.70/9.10 cm/s Vert (L) 34.40/10.50 cm/s ICA/CCA 1.15 ICA/CCA 1.30 Findings Duplex evaluation demonstrates stenosis of the right proximal internal carotid artery <20% with PSV <140 cm/sec, EDV <100 cm/sec, and IC/CC Ratio <4.0. Duplex evaluation demonstrates stenosis of the left proximal internal carotid artery <20% with PSV <140 cm/sec, EDV <100 cm/sec, and IC/CC Ratio <4.0. Duplex evaluation demonstrates antegrade flow of the bilateral Vertebral Arteries. Conclusion Duplex evaluation demonstrates stenosis of the right proximal internal carotid artery <20% with PSV <140 cm/sec, EDV <100 cm/sec, and IC/CC Ratio <4.0. Duplex evaluation demonstrates stenosis of the left proximal internal carotid artery <20% with PSV <140 cm/sec, EDV <100 cm/sec, and IC/CC Ratio <4.0. Duplex evaluation demonstrates antegrade flow of the bilateral Vertebral Arteries. Electronically signed by : Clemente Ybarra MD 02/20/2021 17:10:33
== END ==
PROVIDERS: PCP Emergency Medicine; Visit Provider Internal Medicine Cardiovascular Disease
DX: R09.89 Other specified symptoms and signs involving the circulatory and respiratory systems (principal)
CPT/HCPCS: 78452; 93017; 93880; A9502; J2785

== ENCOUNTER → 2021-07-15 16:00 | Outpatient (CLI) | payer MEDICAID, SELFPAY ==
[2021-07-15 13:21] LABS: Basophils # 0.1 K/mm3 (0-0.2); Basophils % 0.7 % (0.1-2.0); Eosinophils # 0.3 K/mm3 (0.0-0.4); Eosinophils % 2.9 % (0.1-12.0); Hematocrit 44.1 % (37.0-47.0); Hemoglobin 14.5 g/dL (12.2-16.2); Lymphocytes # 3.3 K/mm3 (0.7-4.5); Lymphocytes % 38.4 % (10-50); Mean Corpuscular HGB Conc 32.9 g/dL (31.8-35.4); Mean Corpuscular Hemoglobin 29.4 pg (27.0-31.2); Mean Corpuscular Volume 89.6 fl (81-99); Mean Platelet Volume 7.4 fl (7.4-10.4); Monocytes # 0.3 K/mm3 (0.1-1.0); Neutrophils # 4.7 K/mm3 (1.8-7.8); Platelet Count 374 K/mm3 (142-424); Red Blood Count 4.93 M/mm3 (4.20-5.40); White Blood Count 8.5 K/mm3 (4.8-10.8)
[2021-07-15 13:50] LABS: Chloride 101 mmol/L (98-107); Potassium 4.2 mmoL/L (3.5-5.1); Sodium 133 mmol/L (136-145)
[2021-07-15 13:53] LABS: Alanine Aminotransferase 82 U/L (12-78); Albumin Level 4.2 g/dl (3.5-5.0); Albumin/Globulin Ratio 1.3 (1.1-1.8); Alkaline Phosphatase 91 U/L (38-126); Anion Gap 11.2 mEq/L (5-15); Aspartate Amino Transferase 75 U/L (14-36); Bilirubin,Total 0.6 mg/dl (0.2-1.3); Blood Urea Nitrogen 12 mg/dl (7-17); Carbon Dioxide 25 mmol/L (22.0-30.0); Estimated Glomerular Filt Rate 86 ml/min (>60); GFR (African American) 104 ML/MIN (>60); Globulin 3.3 g/dL (1.3-3.2); Glucose 231 mg/dl (74-100); Total Protein,Serum 7.5 g/dl (6.3-8.2)
[2021-07-15 14:13] LABS: Hemoglobin A1C 11.7 % (4.0-6.0)
[2021-07-15 14:24] LABS: Thyroid Stimulating Hormone 2.09 uIU/mL (0.465-4.68)
[2021-07-15 15:46] LABS: T4 (Thyroxine) 9.4 ug/dl (5.53-11.0)
[2021-07-17 09:13] LABS: Hep A Ab, IgM Negative (Negative); Hepatitis B Core Antibody IgM Negative (Negative); Hepatitis B Surface Antigen Negative (Negative); Hepatitis C Antibody <0.1 s/co ratio (0.0-0.9)
== END ==
PROVIDERS: Visit Provider Emergency Medicine
DX: E11.9 Type 2 diabetes mellitus without complications (principal); R79.89 Other specified abnormal findings of blood chemistry; Z79.84 Long term (current) use of oral hypoglycemic drugs
CPT/HCPCS: 80053; 80074; 82043; 83036; 84436; 84443; 85025

== ENCOUNTER → 2021-07-30 08:20 | Outpatient (CLI) | payer MEDICAID, SELFPAY ==
--- NOTE | 2021-07-30 08:20 | US_ITS ---
FINAL REPORT CLINICAL HISTORY: elevated liver enzymes and fatty liver FINDINGS: Sonographic images of the right upper quadrant were obtained. The pancreas is partially obscured. The liver has increased echogenicity consistent with fatty infiltration. The gallbladder surgically absent. There is no evidence of biliary ductal dilatation.The common duct measures 4mm. Limited images of the right kidney are unremarkable. IMPRESSION: Fatty infiltrated liver. Cholecystectomy. Reviewed, Interpreted and Dictated by Sam Mirza III, MD Transcribed by Nadja Beth Authenticated by Sam Mirza III, MD on 07/30/2021 12:48:56 PM [facility]
== END ==
PROVIDERS: PCP Emergency Medicine; Visit Provider Emergency Medicine
DX: K76.0 Fatty (change of) liver, not elsewhere classified (principal); R74.8 Abnormal levels of other serum enzymes
CPT/HCPCS: 76705

== ENCOUNTER → 2021-08-30 12:49 | Outpatient (CLI) | payer MEDICAID, SELFPAY ==
[2021-08-30 12:54] LABS: Microscopic, Urine URINE MICROSCOPIC (MICROSCOPIC)
[2021-08-30 13:33] LABS: Basophils # 0.2 K/mm3 (0-0.2); Basophils % 1.5 % (0.1-2.0); Eosinophils # 0.2 K/mm3 (0.0-0.4); Eosinophils % 1.6 % (0.1-12.0); Hematocrit 47.5 % (37.0-47.0); Hemoglobin 15.3 g/dL (12.2-16.2); Lymphocytes # 3.1 K/mm3 (0.7-4.5); Lymphocytes % 26.8 % (10-50); Mean Corpuscular HGB Conc 32.1 g/dL (31.8-35.4); Mean Corpuscular Hemoglobin 29.1 pg (27.0-31.2); Mean Corpuscular Volume 90.4 fl (81-99); Mean Platelet Volume 7.4 fl (7.4-10.4); Monocytes # 0.5 K/mm3 (0.1-1.0); Monocytes % 3.9 % (1.7-9.3); Neutrophils # 7.6 K/mm3 (1.8-7.8); Neutrophils % 66.2 % (37.0-80.0); Platelet Count 397 K/mm3 (142-424); Red Blood Count 5.25 M/mm3 (4.20-5.40); Red Cell Distribution Width 14.6 % (11.5-17.5); White Blood Count 11.5 K/mm3 (4.8-10.8)
[2021-08-30 14:53] LABS: Albumin Level 4.2 g/dl (3.5-5.0); Anion Gap 13.1 mEq/L (5-15); Blood Urea Nitrogen 26 mg/dl (7-17); Calcium 9.5 mg/dl (8.4-10.2); Carbon Dioxide 29 mmol/L (22.0-30.0); Chloride 97 mmol/L (98-107); Estimated Glomerular Filt Rate 57 ml/min (>60); GFR (African American) 69 ML/MIN (>60); Glucose 263 mg/dl (74-100); Phosphorous 4.7 mg/dl (2.5-4.5); Potassium 4.1 mmoL/L (3.5-5.1); Sodium 135 mmol/L (136-145)
[2021-08-30 15:12] LABS: 25-OH Vitamin D, Total 25.2 ng/mL (30-100)
[2021-08-30 15:18] LABS: Creatinine,Urine Random 111 mg/dL (Not Estab.); Total Protein,Urine Random < 5.0 mg/dL (0.0-12.0)
[2021-08-30 15:23] LABS: Appearance,Urine CLEAR (Clear); Bacteria,Urine Trace /lpf; Bilirubin,Urine Negative (Negative); Blood, Urine Negative (Negative); Color,Urine YELLOW (Yellow); Glucose,Urine (UA) 3+ (Negative); Ketones,Urine Negative (Negative); Leukocyte Esterase,Urine Negative (Negative); Mucus,Urine Trace /lpf; Nitrate,Urine Negative (Negative); Protein,Urine Negative (Negative); Specific Gravity, Urine 1.015 (1.005-1.030); Urobilinogen,Urine 0.2 EU/dl (0.2); WBC,Urine Occasional #/hpf (0-3)
[2021-08-30 15:27] LABS: Microalbumin < 6.000 mg/L (0-16.7)
== END ==
PROVIDERS: PCP Emergency Medicine; Visit Provider Internal Medicine Nephrology
DX: R80.9 Proteinuria, unspecified (principal); E55.9 Vitamin D deficiency, unspecified
CPT/HCPCS: 36415; 80069; 81001; 82043; 82306; 82570; 83970; 84155; 85025

== ENCOUNTER → 2021-09-02 13:26 | Outpatient (POV) | payer MEDICAID, SELFPAY | PROVIDERS: Visit Provider Internal Medicine Nephrology | DX: Z00.00 Encounter for general adult medical examination without abnormal findings (principal) ==

== ENCOUNTER → 2021-10-15 10:08 | Outpatient (CLI) | payer MEDICAID, SELFPAY ==
--- NOTE | 2021-10-15 10:09 | MM_ITS ---
PROCEDURE INFORMATION: Exam: MG Bilateral Screening 3D Mammography Exam date and time: 10/15/2021 10:36 AM Age: 56 years old Clinical indication: Screening examination no family history of breast cancer. TECHNIQUE: Imaging protocol: Bilateral Screening tomosynthesis and 2D mammography including computer-aided detection (CAD) when performed. COMPARISON: 1. MG MM DIG SCREENING MAMM BI W/CAD 08/16/2020 9:35 AM 2. MG SCBI MM Dig screening mamm BI w/CAD 11/19/2017 9:19 AM 3. MG DMSB DIG MAMM-SCREEN MERON W/CAD 10/08/2016 9:11 AM 4. MG DMSB DIG MAMM-SCREEN MERON 01/02/2014 3:26 PM FINDINGS: MAMMOGRAPHY: Breast composition: There are scattered areas of fibroglandular density. Mass: No suspicious mass. Architectural distortion: None. Calcifications: No suspicious calcifications. Asymmetric density: None. Skin thickening: None. Axillary adenopathy: None. IMPRESSION: No mammographic evidence of malignancy. Annual screening is recommended unless otherwise clinically indicated. ASSESSMENT: BI-RADS Category 1: Negative
== END ==
PROVIDERS: PCP Nurse Practitioner Family; Visit Provider Nurse Practitioner Family
DX: Z12.31 Encounter for screening mammogram for malignant neoplasm of breast (principal)
CPT/HCPCS: 77063; 77067

== ENCOUNTER → 2021-11-13 09:07 | Outpatient (CLI) | payer MEDICAID, SELFPAY ==
[2021-11-12 20:09] LABS: Alanine Aminotransferase 99 U/L (12-78); Albumin Level 3.7 g/dl (3.5-5.0); Albumin/Globulin Ratio 1.1 (1.1-1.8); Alkaline Phosphatase 95 U/L (38-126); Anion Gap 15.6 mEq/L (5-15); Aspartate Amino Transferase 92 U/L (14-36); Blood Urea Nitrogen 12 mg/dl (7-17); Calcium 9.4 mg/dl (8.4-10.2); Carbon Dioxide 24 mmol/L (22.0-30.0); Chloride 96 mmol/L (98-107); Estimated Glomerular Filt Rate 86 ml/min (>60); GFR (African American) 104 ML/MIN (>60); Globulin 3.3 g/dL (1.3-3.2); Potassium 4.6 mmoL/L (3.5-5.1); Sodium 131 mmol/L (136-145)
[2021-11-12 20:13] LABS: Bilirubin,Total < 0.1 mg/dl (0.2-1.3); Glucose 554 mg/dl (74-100)
[2021-11-12 20:14] LABS: Hemoglobin A1C 11.1 % (4.0-6.0)
== END ==
PROVIDERS: PCP Emergency Medicine; Visit Provider Emergency Medicine
DX: E11.9 Type 2 diabetes mellitus without complications (principal); Z79.84 Long term (current) use of oral hypoglycemic drugs
CPT/HCPCS: 80053; 83036

== ENCOUNTER → 2022-01-15 18:08 | Outpatient (CLI) | payer MEDICAID, SELFPAY ==
[2022-01-15 14:27] LABS: Influenza A, PCR Not Detected (NotDetected); Influenza B, PCR Not Detected (NotDetected)
[2022-01-15 14:40] LABS: Basophils # 0.1 K/mm3 (0-0.2); Basophils % 1.1 % (0.1-2.0); Eosinophils # 0.3 K/mm3 (0.0-0.4); Eosinophils % 2.8 % (0.1-12.0); Hematocrit 40.4 % (37.0-47.0); Hemoglobin 13.4 g/dL (12.2-16.2); Lymphocytes # 3.3 K/mm3 (0.7-4.5); Lymphocytes % 34.8 % (10-50); Mean Corpuscular HGB Conc 33.2 g/dL (31.8-35.4); Mean Corpuscular Hemoglobin 29.6 pg (27.0-31.2); Mean Corpuscular Volume 89.3 fl (81-99); Mean Platelet Volume 8.9 fl (7.4-10.4); Monocytes # 0.3 K/mm3 (0.1-1.0); Monocytes % 3.6 % (1.7-9.3); Neutrophils # 5.6 K/mm3 (1.8-7.8); Neutrophils % 57.8 % (37.0-80.0); Platelet Count 456 K/mm3 (142-424); Red Blood Count 4.53 M/mm3 (4.20-5.40); Red Cell Distribution Width 14.8 % (11.5-17.5); White Blood Count 9.6 K/mm3 (4.8-10.8)
[2022-01-15 14:43] LABS: Alanine Aminotransferase 77 U/L (12-78); Albumin Level 3.9 g/dl (3.5-5.0); Albumin/Globulin Ratio 1.1 (1.1-1.8); Alkaline Phosphatase 98 U/L (38-126); Anion Gap 11.9 mEq/L (5-15); Aspartate Amino Transferase 96 U/L (14-36); Blood Urea Nitrogen 12 mg/dl (7-17); Calcium 9.3 mg/dl (8.4-10.2); Carbon Dioxide 31 mmol/L (22.0-30.0); Chloride 100 mmol/L (98-107); Chol/HDL Ratio 4.9 (1-3.5); Cholesterol 197 mg/dl (140-200); Estimated Glomerular Filt Rate 86 ml/min (>60); GFR (African American) 104 ML/MIN (>60); Globulin 3.5 g/dL (1.3-3.2); Glucose 293 mg/dl (74-100); HDL Cholesterol 40 mg/dl (40-60); Potassium 3.9 mmoL/L (3.5-5.1); Sodium 139 mmol/L (136-145); Total Protein,Serum 7.4 g/dl (6.3-8.2); Triglycerides 181 mg/dl (30-150); VLDL Cholesterol 36 mg/dL (0-40)
[2022-01-15 14:50] LABS: Bilirubin,Total < 0.1 mg/dl (0.2-1.3)
[2022-01-15 15:00] LABS: 25-OH Vitamin D, Total 21.3 ng/mL (30-100); Free T4 (Free Thyroxine) 0.95 ng/dl (0.78-2.19)
[2022-01-15 15:13] LABS: Coronavirus 19, PCR Detected (NotDetected)
[2022-01-15 15:15] LABS: Thyroid Stimulating Hormone 2.21 uIU/mL (0.465-4.68)
[2022-01-17 10:09] LABS: Direct LDL Cholesterol 113 mg/dL (100-129)
== END ==
PROVIDERS: PCP Emergency Medicine; Visit Provider Emergency Medicine
DX: U07.1 COVID-19 (principal); E11.9 Type 2 diabetes mellitus without complications; R09.81 Nasal congestion; E55.9 Vitamin D deficiency, unspecified; Z79.84 Long term (current) use of oral hypoglycemic drugs
CPT/HCPCS: 80053; 80061; 82306; 83036; 84439; 84443; 85025; C9803; U0003; U0005

== ENCOUNTER → 2022-03-21 09:59 | Outpatient (CLI) | payer MEDICAID, SELFPAY ==
[2022-03-21 10:54] LABS: Alanine Aminotransferase 50 U/L (12-78); Albumin Level 3.8 g/dl (3.5-5.0); Alkaline Phosphatase 125 U/L (38-126); Aspartate Amino Transferase 56 U/L (14-36); Bilirubin,Direct 0.1 mg/dl (0.0-0.4); Bilirubin,Indirect 0.2 mg/dL (0.0-0.9); Bilirubin,Total 0.3 mg/dl (0.2-1.3); Bilirubin,Unconjugated 0.2 mg/dL (0.0-1.1); Chol/HDL Ratio 3.9 (1-3.5); Cholesterol 179 mg/dl (140-200); HDL Cholesterol 46 mg/dl (40-60); Total Protein,Serum 7.1 g/dl (6.3-8.2); Triglycerides 145 mg/dl (30-150); VLDL Cholesterol 29 mg/dL (0-40)
[2022-03-21 11:05] LABS: Direct LDL Cholesterol 95.05 mg/dL (100-129)
== END ==
PROVIDERS: PCP Emergency Medicine; Visit Provider Internal Medicine Cardiovascular Disease
DX: I11.9 Hypertensive heart disease without heart failure (principal); E11.9 Type 2 diabetes mellitus without complications; Z79.84 Long term (current) use of oral hypoglycemic drugs
CPT/HCPCS: 36415; 80061; 80076

== ENCOUNTER → 2022-07-23 12:56 | Outpatient (CLI) | payer MEDICAID, SELFPAY ==
--- NOTE | 2022-07-23 13:02 | XR_ITS ---
FINAL REPORT CLINICAL HISTORY: knee pain COMPARISON: 09/11/2018 FINDINGS: AP, lateral and oblique views of the left knee were obtained. There is no acute osseous abnormality of the left knee. Degenerative joint disease is noted, progressed from prior study. The soft tissues are normal. There is no joint effusion. IMPRESSION: Progressed degenerative joint disease with no acute bony abnormality. Reviewed, Interpreted and Dictated by Jenni Cooley MD Transcribed by Marika Davis Authenticated and [facility]
== END ==
PROVIDERS: PCP Emergency Medicine; Visit Provider Orthopaedic Surgery
DX: S89.91XA Unspecified injury of right lower leg, initial encounter (principal); M25.561 Pain in right knee
CPT/HCPCS: 73562

== ENCOUNTER → 2022-08-13 11:29 | Outpatient (CLI) | payer MEDICAID, SELFPAY ==
--- NOTE | 2022-08-13 11:37 | ECG_ITS ---
APPROVED REPORT Exam: Resting ECG HR:85 bpm ECG Measurements Heart Rate 85 AXES MS 185 P 31 QRSd 89 QRS 81 QT 373 T -3 QTc 415 Conclusion SINUS RHYTHM Old Q wave in III of ? significance O/w norrmal ECG UNCONFIRMED REPORT Electronically signed by : Abraham Mendoza MD 08/15/2022 16:37:33
[2022-08-13 11:45] LABS: Microscopic, Urine URINE MICROSCOPIC (MICROSCOPIC)
--- NOTE | 2022-08-13 11:52 | XR_ITS ---
FINAL REPORT CLINICAL HISTORY: pre op --- cough FINDINGS: TWO-VIEW CHEST The heart size is normal. The mediastinum is normal. The lungs are clear. There is no pneumothorax. IMPRESSION: No acute cardiopulmonary process. Reviewed, Interpreted and Dictated by Sammy Mckinney MD Transcribed by Alisson Sierra Authenticated and [facility]
[2022-08-13 12:42] LABS: Basophils # 0.1 K/mm3 (0-0.2); Basophils % 1.4 % (0.1-2.0); Eosinophils # 0.2 K/mm3 (0.0-0.4); Eosinophils % 2.2 % (0.1-12.0); Hemoglobin 13.6 g/dL (12.2-16.2); Lymphocytes # 3.1 K/mm3 (0.7-4.5); Lymphocytes % 33.3 % (10-50); Mean Corpuscular HGB Conc 31.5 g/dL (31.8-35.4); Mean Corpuscular Hemoglobin 27.3 pg (27.0-31.2); Mean Corpuscular Volume 86.6 fl (81-99); Mean Platelet Volume 7.1 fl (7.4-10.4); Monocytes # 0.4 K/mm3 (0.1-1.0); Monocytes % 3.7 % (1.7-9.3); Neutrophils # 5.5 K/mm3 (1.8-7.8); Neutrophils % 59.3 % (37.0-80.0); Platelet Count 388 K/mm3 (142-424); Red Blood Count 4.97 M/mm3 (4.20-5.40); Red Cell Distribution Width 14.2 % (11.5-17.5); White Blood Count 9.3 K/mm3 (4.8-10.8)
[2022-08-13 13:17] LABS: Appearance,Urine CLEAR (Clear); Bilirubin,Urine Negative (Negative); Blood, Urine Negative (Negative); Color,Urine YELLOW (Yellow); Glucose,Urine (UA) 2+ (Negative); Ketones,Urine Negative (Negative); Leukocyte Esterase,Urine Negative (Negative); Nitrate,Urine Negative (Negative); PH,Urine 7.5 (5.0-8.5); Protein,Urine Negative (Negative); Urobilinogen,Urine 0.2 EU/dl (0.2)
[2022-08-13 13:28] LABS: Bacteria,Urine Trace /lpf; Squamous Epithelial Cell,Urine Occasional #/hpf (0-5); WBC,Urine Occasional #/hpf (0-3)
[2022-08-13 14:37] LABS: Alanine Aminotransferase 39 U/L (12-78); Albumin Level 4.1 g/dl (3.5-5.0); Albumin/Globulin Ratio 1.3 (1.1-1.8); Alkaline Phosphatase 94 U/L (38-126); Anion Gap 13.4 mEq/L (5-15); Aspartate Amino Transferase 43 U/L (14-36); Bilirubin,Total 0.4 mg/dl (0.2-1.3); Blood Urea Nitrogen 16 mg/dl (7-17); Calcium 8.7 mg/dl (8.4-10.2); Carbon Dioxide 25 mmol/L (22.0-30.0); Chloride 101 mmol/L (98-107); Estimated Glomerular Filt Rate 86 ml/min (>60); GFR (African American) 104 ML/MIN (>60); Globulin 3.2 g/dL (1.3-3.2); Glucose 191 mg/dl (74-100); Potassium 4.4 mmoL/L (3.5-5.1); Sodium 135 mmol/L (136-145); Total Protein,Serum 7.3 g/dl (6.3-8.2)
== END ==
PROVIDERS: PCP Emergency Medicine; Visit Provider Orthopaedic Surgery
DX: Z01.818 Encounter for other preprocedural examination (principal); M25.562 Pain in left knee
CPT/HCPCS: 36415; 71046; 80053; 81001; 85025; 93005

== ENCOUNTER 2022-09-02 10:04 | Observation (INO) | payer MEDICAID, SELFPAY ==
--- NOTE | 2022-08-27 13:34 | CARE MANAGER ---
Attempted to contact patient related to scheduled LTKR. No voicemail option. NEVA Madrid
[2022-08-29 09:59] VITALS: BMI 32.4
[2022-09-02] VITALS (20 sets, daily range): BP systolic 116–146; BP diastolic 67–78; PULSE 68–100; RESP 15–18; TEMP 36.1–43; O2SAT 91–100; BMI 33.5
[2022-09-02 09:16] LABS: POC Glucose,Bedside 166 (70-110)
--- NOTE | 2022-09-02 09:41 | EXP.ANES.CKL ---
[facility] Disclaimer: The information contained in this section may have been updated after the patient was seen, as this information can be updated by other users. Medical History Anxiety Arrhythmia Chest pain Depression Diabetes mellitus, type 2 Edema Encounter for tubal ligation History of anemia History of cataract History of COVID-19 History of gastroesophageal reflux (GERD) Hyperlipidemia Hypertension Hypothyroid Murmur, heart SOB (shortness of breath) on exertion Surgical History H/O tubal ligation H/O: hysterectomy History of cholecystectomy History of surgery History of surgery History of surgery Family History Father Heart attack Heart disease Mother Heart attack Heart disease Social History Smoking Status: Never smoker second hand exposure: Yes alcohol intake: never substance use type: denies use current occupational status: employed Travel in the last 8 weeks: None household members: family housing: house current occupation: [employer] current occupational exposures/hazards: No caffeine: Yes [facility] Anesthesia Checklist Patient Identification Patient Identification: Arm Band and Verbal (Name & ) Structural Data Admitted From: Home Planned Operative Procedure/s: Left Total knee Replacement Consent for Planned Operative Procedure(s) Verified: Yes Verified Documents: Surgical Consent NPO Status Verified Time NPO: 00:00 Chart Verification Results Verified: CBC, BMP and ECG Additional verifications Fingerstick Blood Glucose: 166 Anesthesia Reactions: No Hx Blood Transfusions: Yes Blood Transfusion Reaction: No Airway Assessment C-Spine Mobility Assessed: Yes TMJ Mobility Assessed: Yes Dentition: Good Dentition Neurological Assessment Level of Consciousness: Awake, Alert and Appropriate Anesthesia Plan Anesthesia Risk discussed: Yes ASA Class: II Anesthesia Type: MAC w/Spinal
--- NOTE | 2022-09-02 10:32 | HMH.PHAINT1 ---
Pharmacy Intervention Comments: MEDICATION RECONCILIATION COMPLETED ON PATIENT USING EXTERNAL FILL HISTORY FROM PHARMACY AND LIST FROM PCP OFFICE. -RUTH MOONEY, DARCIED
--- NOTE | 2022-09-02 12:00 | EXP.OP.NOTE ---
Date of procedure: 09/02/22 Pre-op Diagnosis:: Left knee osteoarthritis Post-op Diagnosis:: Left knee osteoarthritis Procedure performed:: Left total knee arthroplasty Surgeon:: Chava Lord MD Sewing Machines Salesperson(s):: LACY Potter PRODUCT SAFETY AND STANDARDS ENGINEER:: Manuel Asencio Anesthesia: MAC, regional, local and spinal Estimated blood loss (mL): 5 Clinical Note:: Hailey is a very pleasant 57-year-old female with activity limiting left knee pain secondary to osteoarthritis that is affecting her quality of life. Minimal relief with viscosupplementation injections a couple years ago. She takes Aleve and Tylenol as needed. She is a non-smoker and takes a baby aspirin. She works part-time as a caregiver. Left knee x-rays in July revealed moderate to severe tricompartmental degenerative changes with almost complete loss of medial joint space and marginal osteophyte formation in a varus knee. We discussed all the risks, benefits and alternatives to left total knee arthroplasty and she agreed to proceed. Surgical consent form was signed. Operative findings:: Left knee severe tricompartmental degenerative changes with loss of medial joint space and full-thickness cartilage loss in a varus knee. Operative note:: The patient was seen in the preoperative holding area. The left knee was marked to confirm the correct operative site. She received Ancef 2 g ibuprofen take antibiotics within 1 hour of incision time. She received 1 g IV TXA just prior to the case and as we are closing to help minimize bleeding. She was brought back to the OR. Spinal performed without difficulty. Placed in the supine position and a bump placed underneath the left hip. Nonsterile tourniquet applied to the left thigh. Left lower extremity prepped and draped in the usual sterile fashion. Timeout was performed to confirm left total knee arthroplasty. The left lower extremity was exsanguinated with an Esmarch. Tourniquet was inflated to 300 mmHg. With the knee flexed a midline incision was made with a 10 blade scalpel. Full-thickness medial and lateral flaps elevated. We made a medial parapatellar arthrotomy with a fresh 10 blade scalpel. Patella fat pad and anterior femoral fat pads were excised. Marginal osteophytes were removed. Medial release was performed using Bovie electrocautery. Z retractors were placed medially and laterally. The distal femur was then drilled and intramedullary distal femoral cutting guide was pinned in place set at a 5 degree valgus cut for a 1 cm cut. This cut was made with the oscillating saw. The femur was then sized to a size 4 set at 3 degrees of external rotation. The 4 in 1 cutting guide was pinned in place. Anterior and posterior cuts were made as were the chamfer cuts. We then turned our attention to the tibia. The tibia was subluxed anteriorly. PCL retractor was placed as were medial and lateral Hohmann retractors. Using the extramedullary tibial cutting guide set at a 3 degree posterior slope we pinned this in place to remove 5 mm of bone from the low medial side and a centimeter from the high lateral side. This cut was made with oscillating saw. The medial and lateral menisci were excised as were osteophytes. With the 9 mm block we achieved full extension and flexion with excellent alignment. The tibia was then sized to a size 2 tibial tray centered off the medial third of the tibial tubercle. The tray was pinned in place we impacted the tibial fins. We then placed a size 4 trial femur. We made the box cut with the reamer and punch. We then trialed with a size 4 femur, 2 tibia and 9 poly. We decided to use a narrow femur. With the trial components in place we achieved full extension and flexion with excellent alignment and stable throughout. We turned our attention to the patella. Patella was sized to 20 mm in thickness we made a 7 mm patellar cut with the reciprocal saw. A 29 trial button was placed after the patellar drill holes were made. There is se
--- NOTE | 2022-09-02 12:10 | XR_ITS ---
FINAL REPORT CLINICAL HISTORY: Status post left knee replacement FINDINGS: Left knee Two views were obtained. There is no acute fracture or dislocation. The patient is status post knee arthroplasty. There is no evidence of soft tissue air or complication. IMPRESSION: Postsurgical changes. Reviewed, Interpreted and Dictated by Sam Mirza III, MD Transcribed by Alisson Sierra Authenticated and [facility]
--- NOTE | 2022-09-02 12:10 | EXP.ANES.I ---
[facility] Anesthesia Record Part I Anesthesia Record I Intake, IV Amount: 1,600 Estimated blood loss (mL): 10 Urine output (mL): 0 Blood Products used (#): none Blood Pressure: 136/78 SaO2: 93 Pulse Rate: 100 Respiratory Rate: 16 Temperature: 98 F Patient is:: Drowsy and Stable Stable to PACU at:: 12:05
--- NOTE | 2022-09-02 14:00 | HMH.PTEV ---
Physical Therapy Evaluation Rehab PT IP Evaluation Start: 09/02/22 12:10 Freq: ONCE Status: Active Protocol: Document 09/02/22 13:56 PHORNE (Rec: 09/02/22 14:00 PHORNE [id number]) Subjective/History History History 57 yowf adm to [facility] for L TKA due to OA. She reports she lives with her son, 5 steps to enter the home, and was independent with all ambulation without AD prior to adm. Subjective Subjective Pt reports expected post-op pain in the L knee. Rehab PT IP Eval Objective Appearance Patient Behavior Appropriate Patient Orientation Person,Place,Time Difficulty following instructions none Speech Pattern Clear Ambulation Patient Able to Ambulate Yes Ambulation Observation IP General Gait Pattern Observation Antalgic Gait,Shuffling Step, Decrease Stride Lngth (R), Decrease Stride Lngth (L) Ambulation Distance (feet) 5 Ambulation Assistive Device Rolling Walker Ambulation Ability Contact Guard/Hand Hold Balance Ability to Arise Able, uses arms to help Sitting Balance Steady, safe Standing Balance Steady, wide stance Dynamic Sitting Balance Ability Good Dynamic Standing Balance Ability Good Transfers Bed Transfer Ability Contact Guard/Hand Hold Chair Transfer Ability Contact Guard/Hand Hold Sit to Stand Bed Transfer Ability Contact Guard/Hand Hold Sit to Stand Chair Transfer Ability Contact Guard/Hand Hold Rehab PT IP prob,goals,plan Problems Date of Evaluation: 09/02/22 PT IP Problems Bed Mobility,Transfers,Gait Rehab Potential Rehab Potential Good Equipment Needs Assistive Devices Rolling / Wheeled Walker Plan PT Intervention Plan Bed Mobility,Transfers,Gait, Therapeutic Exercise PT Plan Frequency BID Duration LOS Discharge Goals Bed Transfer Ability Supervision/Stand by Sit to Stand Chair Transfer Ability Supervision/Stand by Ambulation Assistive Device Rolling Walker Ambulation Distance (feet) 20 Discharge Plan PT Discharge Plan Pt is currently appropriate to return home once medically stable for d/c. Recommend home health vs outpatient therapy as appropriate. G -code Required No Eval Complexity Eval Charge Codes 44217 - Moderate Complexity
--- NOTE | 2022-09-02 14:03 | HMH.OTEV ---
OT Inpatient Evaluation Rehab OT IP Evaluation Start: 09/02/22 12:10 Freq: ONCE Status: Active Protocol: Document 09/02/22 13:58 [facility] (Rec: 09/02/22 14:03 [facility] [id number]) Rehab OT IP Assessment Subjective History Pt oriented x 3 on arrival. Pt agreeable to engage in therapy evaluation. Pt was admitted on 09/02/22 following L TKA. Prior to being in the hospital, pt lived in a house with five steps to enter. Pt' s son lives with her. Pt was completely independent with all ADLs and IADLs. Pt did not require any type of AE during ambulation. Pt also still drove. Subjective I do feel a little sick to my stomach. Objective Patient Orientation Person,Place,Birthday Upper Extremity Gross ROM WFL Bed Mobility bed mobility-scooting,bed mobility - supine/sit,bed mobility - rolling Assist Level Minimal x 1 (25% assist) Transfer Training Sit/Stand/Step Transfer Assist Level Minimal x 1 (25% assist) Chair Transfer Ability Contact Guard/Hand Hold, Minimal x 1 (25% assist) Chair Transfer Technique Sit to/from Ambulatory Chair Transfer Assistive Devices Rolling Walker Rehab OT IP prob,goals,plan Problems Date of Evaluation: 09/02/22 OT IP Problems Bed Mobility,Transfers,Balance ,Self care,Safety Rehab Potential Rehab Potential Good Equipment Needs Assistive Devices Rolling / Wheeled Walker Plan OT intervention Plan Bed Mobility,Transfers,Balance ,Self care,Safety,Therapeutic Exercise OT Plan Frequency BID Duration LOS Discharge Goals Bed Mobility Ability Standby Assistance Sit to Stand Chair Transfer Ability Contact Guard/Hand Hold Chair Transfer Ability Contact Guard/Hand Hold Chair Transfer Technique Sit to/from Ambulatory Chair Transfer Assistive Devices Rolling Walker Feeding Ability Assist with Tray Set Up Lower Body Dressing Ability Assistance X1 Upper Body Dressing Ability Standby Assistance Bathing Ability Assistance x1 Performing Toilet Hygiene Ability Assistance X1 Overall Commode/Toilet Transfer Ability Assistance x1 Commode/Toilet Transfe
--- NOTE | 2022-09-02 15:01 | EXP.ANES.II ---
[facility] Anesthesia Record Part II Anesthesia Record Part II Discharge Time: 12:35 Destination: Surgical Day Care (OP Surgery) PACU nurse assessment reviewed?: Yes Patient Condition:: Good Anesthesia Complications:: None Swallowing reflex intact?: Yes Cyanosis?: No Blood Pressure: 132/68 Pulse Rate: 83 Temperature: 98 F Mental Status: Alert & Oriented Pain level:: 0 Nausea and/or vomitting:: None Intake, IV Amount: 0
--- NOTE | 2022-09-02 15:24 | CARE MANAGER ---
Addendum entered by Dory Villar RN 09/03/22 10:32: Met with patient again this morning, she is unable to find the walker and BSC. Patient Choice signed for [facility] and placed on chart. Order/clinical faxed to [facility], and equipment will be delivered to bedside prior to discharge. Original Note: Met with patient at bedside to discuss discharge planning. Patient plans to discharge home with outpatient PT. She has a walker and bedside commode at home. No known needs r/t discharge known. CM will continue to follow.
--- NOTE | 2022-09-02 15:32 | PC.NURSE ---
pt alert x4, lungs cta, vss. dsg to lt knee cdi, pavel wrap changed due to being soiled. kevin rpack in place. therapy worked with pt, got pt up tp hair. pt became nausea and had one episode of vomiting. treated per jul. . pts purse with meds in it, locked in senior nuclear medicine technologist room. pain meds admin x1 since coming to floor. cb within reach, pt instructed not to get up without help for safety.
[2022-09-02 16:42] LABS: Coronavirus 19, PCR Not Detected (NotDetected); Influenza A, PCR Not Detected (NotDetected); Influenza B, PCR Not Detected (NotDetected)
--- NOTE | 2022-09-02 18:09 | PC.NURSE ---
pt c/o nausea, per vandana go ahead and give zofran now.
--- NOTE | 2022-09-02 19:13 | EXP.HP ---
History of Present Illness *Admission Date: 09/02/22 *Reason for visit:: OA sp LTKA *History of present illness: Ms. Castellanos is a 57-year-old female with a past medical history of OA, T2DM, Hypertension, Hypothyroidism, and Hyperlipidemia. She presented to [facility] today to undergo an elective Left Total Knee Arthoplasty secondary to Osteoarthritis that failed outpatient conservative treatment with Tylenol, Ibuprofen and Viscosupplemental injections. She is seen following her surgery and tolerated the procedure well, post operatively she is having some nausea that is responding appropriately to Zofran. Hospital Medicine has been consulted for medical management. [facility] Disclaimer: The information contained in this section may have been updated after the patient was seen, as this information can be updated by other users. Medical History Anxiety Arrhythmia Chest pain Depression Diabetes mellitus, type 2 Edema Encounter for tubal ligation History of anemia History of cataract History of COVID-19 History of gastroesophageal reflux (GERD) Hyperlipidemia Hypertension Hypothyroid Murmur, heart SOB (shortness of breath) on exertion Surgical History H/O tubal ligation H/O: hysterectomy History of cholecystectomy History of surgery History of surgery History of surgery Family History Father Heart attack Heart disease Mother Heart attack Heart disease Social History Smoking Status: Never smoker second hand exposure: Yes alcohol intake: never substance use type: denies use current occupational status: employed Travel in the last 8 weeks: None household members: family housing: house current occupation: [employer] current occupational exposures/hazards: No caffeine: Yes Review of Systems Review of Systems Review of systems:: pertinent systems reviewed and negative unless documented below Constitutional Constitutional: Reports system reviewed and no additional complaints, except as documented Eyes Eyes: Reports system reviewed and no additional complaints, except as documented ENT Ears, Nose, Mouth, and Throat: Reports system reviewed and no additional complaints, except as documented *Cardiovascular Cardiovascular: Reports system reviewed and no additional complaints, except as documented *Respiratory Respiratory: Reports system reviewed and no additional complaints, except as documented *Gastrointestinal Gastrointestinal: Reports nausea and Reports vomiting *Genitourinary Genitourinary: Reports system reviewed and no additional complaints, except as documented *Musculoskeletal Musculoskeletal: Reports arthralgias Integumentary/Breasts Skin/Breast: Reports system reviewed and no additional complaints, except as documented *Neurologic Neurologic: Reports system reviewed and no additional complaints, except as documented Psychiatric Psychiatric: Reports system reviewed and no additional complaints, except as documented Endocrine Endocrine: Reports system reviewed and no additional complaints, except as documented Hematologic/Lymphatic Hematologic/Lymphatic: Reports system reviewed and no additional complaints, except as documented Allergic/Immunologic Allergic/Immunologic: Reports system reviewed and no additional complaints, except as documented Meds Home Medications and Allergies Home Medications Medication Instructions Recorded Confirmed Type estradiol 1 mg tablet 1 mg PO DAILY HORMONE REPLACEMENT 11/12/21 08/29/22 Rx #90 tabs levothyroxine 25 mcg tablet 25 mcg PO DAILY THYROID #90 tabs 11/12/21 08/29/22 Rx amlodipine 5 mg tablet (Norvasc) 5 mg PO DAILY Hypertension 08/29/22 08/29/22 History bisoprolol fumarate 10 mg tablet 10 mg PO BID Hypertension
[2022-09-02 19:57] LABS: Basophils % 0.2 % (0.1-2.0); Chloride 103 mmol/L (98-107); Eosinophils % 0.2 % (0.1-12.0); Hematocrit 38.8 % (37.0-47.0); Hemoglobin 12.2 g/dL (12.2-16.2); Lymphocytes # 1.1 K/mm3 (0.7-4.5); Lymphocytes % 7.5 % (10-50); Mean Corpuscular HGB Conc 31.4 g/dL (31.8-35.4); Mean Corpuscular Hemoglobin 27.3 pg (27.0-31.2); Mean Corpuscular Volume 86.8 fl (81-99); Monocytes # 0.3 K/mm3 (0.1-1.0); Monocytes % 2.2 % (1.7-9.3); Neutrophils # 12.8 K/mm3 (1.8-7.8); Platelet Count 310 K/mm3 (142-424); Potassium 4.4 mmoL/L (3.5-5.1); Red Blood Count 4.47 M/mm3 (4.20-5.40); Red Cell Distribution Width 14.5 % (11.5-17.5); Sodium 136 mmol/L (136-145); White Blood Count 14.3 K/mm3 (4.8-10.8)
[2022-09-02 20:00] LABS: Alanine Aminotransferase 39 U/L (12-78); Albumin Level 3.8 g/dl (3.5-5.0); Albumin/Globulin Ratio 1.2 (1.1-1.8); Alkaline Phosphatase 86 U/L (38-126); Anion Gap 13.4 mEq/L (5-15); Aspartate Amino Transferase 45 U/L (14-36); Bilirubin,Total 0.6 mg/dl (0.2-1.3); Blood Urea Nitrogen 11 mg/dl (7-17); Calcium 8.4 mg/dl (8.4-10.2); Carbon Dioxide 24 mmol/L (22.0-30.0); Creatinine Clearance Estimated 110 mL/min (50-200); Estimated Glomerular Filt Rate 86 ml/min (>60); GFR (African American) 104 ML/MIN (>60); Globulin 3.3 g/dL (1.3-3.2); Glucose 209 mg/dl (74-100); Total Protein,Serum 7.1 g/dl (6.3-8.2)
[2022-09-02 20:05] LABS: MANUAL DIFFERENTIAL MANUAL DIFFERENTIAL (MANUAL DIFF)
[2022-09-02 20:25] LABS: Lymphocytes % 9 % (10-50); Monocytes % 1 % (2-9); Neutrophils % 90 % (42-76); Total Cells Counted 100
[2022-09-02 20:26] LABS: Platelet Estimate Normal; RBC Morphology Normal
[2022-09-02 23:37] LABS: POC Glucose,Bedside 239 (70-110)
[2022-09-03] VITALS: BP 134/68; PULSE 90; RESP 20; TEMP 37.1; O2SAT 96
[2022-09-03 04:00] VITALS: BMI 33.1
--- NOTE | 2022-09-03 05:23 | PC.NURSE ---
Pt complained of left knee pain twice this shift, medicated PRN per JUL with adequate pain relief. Dressing, pavel bandage, polar mickey in place to left knee. Bilat pedal pulses strong/equal. Pt has used BSC with 1 person assist. Remains on RA. No other complaints this shift, call light in reach. NS infusing @75 ml/hr, per JUL.
[2022-09-03 07:04] LABS: POC Glucose,Bedside 158 (70-110)
[2022-09-03 07:24] VITALS: BP 131/71; PULSE 81; RESP 16; TEMP 37.1; O2SAT 96
[2022-09-03 07:28] LABS: Basophils % 0.5 % (0.1-2.0); Eosinophils # 0.1 K/mm3 (0.0-0.4); Eosinophils % 0.9 % (0.1-12.0); Hematocrit 34.4 % (37.0-47.0); Lymphocytes # 2.4 K/mm3 (0.7-4.5); Lymphocytes % 25.8 % (10-50); Mean Corpuscular HGB Conc 31.9 g/dL (31.8-35.4); Mean Corpuscular Hemoglobin 27.4 pg (27.0-31.2); Mean Corpuscular Volume 85.9 fl (81-99); Mean Platelet Volume 7.4 fl (7.4-10.4); Monocytes # 0.4 K/mm3 (0.1-1.0); Monocytes % 4.4 % (1.7-9.3); Neutrophils # 6.5 K/mm3 (1.8-7.8); Neutrophils % 68.5 % (37.0-80.0); Platelet Count 314 K/mm3 (142-424); Red Cell Distribution Width 14.7 % (11.5-17.5); White Blood Count 9.4 K/mm3 (4.8-10.8)
[2022-09-03 07:31] LABS: Chloride 104 mmol/L (98-107); Potassium 4.1 mmoL/L (3.5-5.1); Sodium 136 mmol/L (136-145)
[2022-09-03 07:34] LABS: Anion Gap 11.1 mEq/L (5-15); Blood Urea Nitrogen 10 mg/dl (7-17); Calcium 7.9 mg/dl (8.4-10.2); Carbon Dioxide 25 mmol/L (22.0-30.0); Creatinine Clearance Estimated 109 mL/min (50-200); Estimated Glomerular Filt Rate 86 ml/min (>60); GFR (African American) 104 ML/MIN (>60); Glucose 169 mg/dl (74-100)
[2022-09-03 08:30] VITALS: O2SAT 98
--- NOTE | 2022-09-03 09:15 | EXP.ORTH.PN ---
Subjective *Date: 09/03/22 *Time: 10:11 Interval history: Ms. Castellanos is a 57-year-old female patient who underwent an uneventful primary left total knee replacement performed by Dr. Lord yester. Today the patient is postop day #1. This morning the patient is sitting up comfortably in a chair at the bedside and her family is present. She reports left knee pain SP expected but states that has been well controlled with as needed pain medication and rest. She reports that she has been ambulating to the bathroom and that this has been going well. She reports intermittent nausea, but denies any episodes of vomiting. She has been eating and drinking well. No history of any distal tingling/numbness, fevers, chills, or rigors. She denies any other symptoms or concerns at this time. Ortho Exam (Inpt) Vital signs and Labs for Last 24 Hours: Temp Pulse Resp BP Pulse Ox 98.7 F 81 16 131/71 96 09/03/22 07:24 09/03/22 07:24 09/03/22 07:24 09/03/22 07:24 09/03/22 07:24 Laboratory Results - last 24 hr 09/02/22 09:07: POC Glucose 166 H 09/02/22 16:30: SARS-CoV-2 (PCR) Not detected, Influenza A Untype (PCR) Not detected, Influenza Type B (PCR) Not detected 09/02/22 19:30: WBC 14.3 H, RBC 4.47, Hgb 12.2, Hct 38.8, MCV 86.8, MCH 27.3, MCHC 31.4 L, RDW 14.5, Plt Count 310, MPV 7.0 L, Neut % (Auto) 90.0 H, Lymph % (Auto) 7.5 L, [place] % (Auto) 2.2, Eos % (Auto) 0.2, Baso % (Auto) 0.2, Neut # (Auto) 12.8 H, Lymph # (Auto) 1.1, [place] # (Auto) 0.3, Eos # (Auto) 0.0, Baso # (Auto) 0.0, Total Counted 100, Neutrophils % (Manual) 90 H, Lymphocytes % (Manual) 9 L, Monocytes % (Manual) 1 L, Platelet Estimate Normal, RBC Morphology Normal 09/02/22 19:30: Sodium 136, Potassium 4.4, Chloride 103, Carbon Dioxide 24, Anion Gap 13.4, BUN 11, Creatinine 0.70, Estimated Creat Clear 110, Estimated GFR 86, Est GFR ( Amer) 104, Glucose 209 H, Calcium 8.4, Total Bilirubin 0.6, AST 45 H, ALT 39, Alkaline Phosphatase 86, Total Protein 7.1, Albumin 3.8, Globulin 3.3 H, Albumin/Globulin Ratio 1.2 09/02/22 22:07: POC Glucose 239 H 09/03/22 06:21: POC Glucose 158 H 09/03/22 07:05: WBC 9.4 D, RBC 4.00 L, Hgb 11.0 L, Hct 34.4 L, MCV 85.9, MCH 27.4, MCHC 31.9, RDW 14.7, Plt Count 314, MPV 7.4, Neut % (Auto) 68.5, Lymph % (Auto) 25.8, [place] % (Auto) 4.4, Eos % (Auto) 0.9, Baso % (Auto) 0.5, Neut # (Auto) 6.5, Lymph # (Auto) 2.4, [place] # (Auto) 0.4, Eos # (Auto) 0.1, Baso # (Auto) 0.0 09/03/22 07:05: Sodium 136, Potassium 4.1, Chloride 104, Carbon Dioxide 25, Anion Gap 11.1, BUN 10, Creatinine 0.70, Estimated Creat Clear 109, Estimated GFR 86, Est GFR ( Amer) 104, Glucose 169 H, Calcium 7.9 L I & O for Labs for Last 24 Hours: Intake & Output 08/31/22 09/01/22 09/02/22 09/03/22 23:59 23:59 23:59 23:59 Intake Total 1720 / 1720 1132 / 1132 Output Total 0 / 0 0 / 0 Balance 1720 / 1720 113 / 1132 Weight 177 lb 2 oz 175 lb 8 oz Head: Present normocephalic and atraumatic Eyes: Present as per HPI ENT: Present normal exam Neck: Present normal inspection, full ROM and trachea midline; Absent lymphadenopathy Respiratory: Present normal respiratory effort, able to speak in complete sentences and symmetric chest movement; Absent accessory muscle use Cardiac: Present Reg Rate and Rhythm GI: Present soft; Absent tenderness Comment:: Upon examination of the left knee: Dressings present are clean, dry, and intact. Out of the dressings, the surgical incision appears healthy. No erythema, induration, purulent drainage, bleeding, or other signs of infection noted. There is a Dermabond Prineo skin closure system in place. Attempted movements of the left knee are somewhat painful. Thigh and calf are soft nontender; Homans' sign is negative. No clinical evidence of DVT or compartment syndrome noted. Distal neurovascular status is grossly intact; posterior tibial pulse 2+ Sensation to light touch is grossly intact throughout. Patient is actively mobilizing the foot,
[2022-09-03 09:47] VITALS: RESP 16
--- NOTE | 2022-09-03 10:12 | EXP.DC.SUM ---
General Admission date:: 09/02/22 HPI HPI HPI: Ms. Castellanos is a 57-year-old female with a past medical history of OA, T2DM, Hypertension, Hypothyroidism, and Hyperlipidemia. She presented to [facility] today to undergo an elective Left Total Knee Arthoplasty secondary to Osteoarthritis that failed outpatient conservative treatment with Tylenol, Ibuprofen and Viscosupplemental injections. She is seen following her surgery and tolerated the procedure well, post operatively she is having some nausea that is responding appropriately to Zofran. Hospital Medicine has been consulted for medical management. Hospital Course Hospital Course Hospital Course: Patient was admitted forLeft Total Knee Arthoplasty secondary to Osteoarthritis. Procedure went well with no complications. Patient was evaluated by orthopedics and started on aspirin for DVT prophylaxis. All lab parameters remained stable and are within acceptable limits. Patient is agreeable and medically acceptable for discharge she will be receiving outpatient physical therapy Exam Data for Last 24 hours Vital signs and Labs for Last 24 Hours: Temp Pulse Resp BP Pulse Ox 98.7 F 81 16 131/71 96 09/03/22 07:24 09/03/22 07:24 09/03/22 09:47 09/03/22 07:24 09/03/22 07:24 Laboratory Results - last 24 hr 09/02/22 16:30: SARS-CoV-2 (PCR) Not detected, Influenza A Untype (PCR) Not detected, Influenza Type B (PCR) Not detected 09/02/22 19:30: WBC 14.3 H, RBC 4.47, Hgb 12.2, Hct 38.8, MCV 86.8, MCH 27.3, MCHC 31.4 L, RDW 14.5, Plt Count 310, MPV 7.0 L, Neut % (Auto) 90.0 H, Lymph % (Auto) 7.5 L, [place] % (Auto) 2.2, Eos % (Auto) 0.2, Baso % (Auto) 0.2, Neut # (Auto) 12.8 H, Lymph # (Auto) 1.1, [place] # (Auto) 0.3, Eos # (Auto) 0.0, Baso # (Auto) 0.0, Total Counted 100, Neutrophils % (Manual) 90 H, Lymphocytes % (Manual) 9 L, Monocytes % (Manual) 1 L, Platelet Estimate Normal, RBC Morphology Normal 09/02/22 19:30: Sodium 136, Potassium 4.4, Chloride 103, Carbon Dioxide 24, Anion Gap 13.4, BUN 11, Creatinine 0.70, Estimated Creat Clear 110, Estimated GFR 86, Est GFR ( Amer) 104, Glucose 209 H, Calcium 8.4, Total Bilirubin 0.6, AST 45 H, ALT 39, Alkaline Phosphatase 86, Total Protein 7.1, Albumin 3.8, Globulin 3.3 H, Albumin/Globulin Ratio 1.2 09/02/22 22:07: POC Glucose 239 H 09/03/22 06:21: POC Glucose 158 H 09/03/22 07:05: WBC 9.4 D, RBC 4.00 L, Hgb 11.0 L, Hct 34.4 L, MCV 85.9, MCH 27.4, MCHC 31.9, RDW 14.7, Plt Count 314, MPV 7.4, Neut % (Auto) 68.5, Lymph % (Auto) 25.8, [place] % (Auto) 4.4, Eos % (Auto) 0.9, Baso % (Auto) 0.5, Neut # (Auto) 6.5, Lymph # (Auto) 2.4, [place] # (Auto) 0.4, Eos # (Auto) 0.1, Baso # (Auto) 0.0 09/03/22 07:05: Sodium 136, Potassium 4.1, Chloride 104, Carbon Dioxide 25, Anion Gap 11.1, BUN 10, Creatinine 0.70, Estimated Creat Clear 109, Estimated GFR 86, Est GFR ( Amer) 104, Glucose 169 H, Calcium 7.9 L I & O for Last 24 hours: Intake & Output 08/31/22 09/01/22 09/02/22 09/03/22 23:59 23:59 23:59 23:59 Intake Total 1720 / 1720 1132 / 1132 Output Total 0 / 0 0 / 0 Balance 1720 / 1720 1132 / 1132 Weight 80.343 kg 79.605 kg Constitutional Constitutional: no acute distress *Routine HEENT Exam Head: Present normocephalic Eye: Present EOMI and PERRL ENT: Present mucous membranes moist *Routine Neck Exam Neck: Present supple; Absent lymphadenopathy *Routine Respiratory Exam Respiratory: Present CTA bilaterally *Routine Cardiovascular Exam Cardiovascular: Present RRR *Routine Abdominal Exam Abdominal: Present soft and normoactive bowel sounds; Absent tenderness *Routine Extremities Exam Extremities: Absent cyanosis, clubbing or edema Comments: Left lower extremity brace *Routine Skin Exam Skin: Present warm; Absent rash *Routine Neurological Exam Neurological: Present alert and oriented X3 Results Data Completed and Pending Labs on day of discharge: Labs from last 24 hours 09/03/22 09/03/22 09/03/22 0
--- NOTE | 2022-09-03 10:30 | HMH.PHAINT1 ---
Pharmacy Intervention Comments: Counseled patient on new medication oxycodone to START on discharge. Patient expressed understanding of medication indication, dose, route, frequency, and potential side effects. Patient counseled regarding continuing ASA 325mg daily for 4 weeks post-operatively. Patient expressed understanding.
[2022-09-03 11:03] VITALS: BP 129/58; PULSE 83; RESP 16; TEMP 37.4; O2SAT 97
--- NOTE | 2022-09-04 15:00 | CARE MANAGER ---
Attempted post-discharge phone interview, no answer.
--- NOTE | 2022-09-05 15:24 | CARE MANAGER ---
Spoke with patient related to hospital discharge. She did not make it to outpatient therapy as she was sick to her stomach, but she did reschedule it. She is aware of her follow up appointments and picked up her pain medication. NEVA [place]
== END 2022-09-03 12:35 | disposition home or self-care (01) ==
LOC: 2ND 10:05
PROVIDERS: Nurse Practitioner Family; Admitting Provider Orthopaedic Surgery; PCP Emergency Medicine; Visit Provider Student in an Organized Health Care Education/Training Program
PROC: (CPT 27447; principal; 2022-09-02 10:30)
DX: M17.12 Unilateral primary osteoarthritis, left knee (principal); E11.9 Type 2 diabetes mellitus without complications; I10 Essential (primary) hypertension; E78.5 Hyperlipidemia, unspecified; M25.562 Pain in left knee; G89.29 Other chronic pain; Z79.84 Long term (current) use of oral hypoglycemic drugs; Z79.899 Other long term (current) drug therapy; Z79.890 Hormone replacement therapy; E03.9 Hypothyroidism, unspecified
CPT/HCPCS: 27447; 36415; 73560; 80048; 80053; 82962; 85007; 85025; 96374; 97116; 97162; 97166; 97535; C1713; C1776; C9803; G0378; J2405; J2704; U0003; U0005

== ENCOUNTER → 2022-09-24 08:50 | Outpatient (CLI) | payer MEDICAID, SELFPAY ==
--- NOTE | 2022-09-24 08:55 | XR_ITS ---
FINAL REPORT CLINICAL HISTORY: left knee pain COMPARISON: 09/02/2022 FINDINGS: Left knee Three views were obtained. There is no acute fracture or dislocation. Total joint prosthesis is in anatomic alignment. The previously identified subcutaneous emphysema has resolved. IMPRESSION: Resolution of the previously identified subcutaneous edema. Reviewed, Interpreted and Dictated by Sammy Mckinney MD Transcribed by Alisson Sierra Authenticated and [facility]
[2022-09-24 09:38] LABS: Basophils # 0.1 K/mm3 (0-0.2); Basophils % 0.7 % (0.1-2.0); Eosinophils # 0.3 K/mm3 (0.0-0.4); Eosinophils % 3.4 % (0.1-12.0); Hemoglobin 12.5 g/dL (12.2-16.2); Lymphocytes # 3.2 K/mm3 (0.7-4.5); Lymphocytes % 35.3 % (10-50); Mean Corpuscular HGB Conc 31.3 g/dL (31.8-35.4); Mean Corpuscular Hemoglobin 27.1 pg (27.0-31.2); Mean Corpuscular Volume 86.6 fl (81-99); Mean Platelet Volume 7.1 fl (7.4-10.4); Monocytes # 0.4 K/mm3 (0.1-1.0); Monocytes % 4.4 % (1.7-9.3); Neutrophils # 5.1 K/mm3 (1.8-7.8); Neutrophils % 56.3 % (37.0-80.0); Platelet Count 517 K/mm3 (142-424); Red Blood Count 4.63 M/mm3 (4.20-5.40); Red Cell Distribution Width 15.4 % (11.5-17.5); White Blood Count 9.1 K/mm3 (4.8-10.8)
[2022-09-24 10:02] LABS: Chloride 96 mmol/L (98-107); Potassium 4.5 mmoL/L (3.5-5.1); Sodium 140 mmol/L (136-145)
[2022-09-24 10:05] LABS: Anion Gap 16.5 mEq/L (5-15); Blood Urea Nitrogen 15 mg/dl (7-17); Calcium 9.9 mg/dl (8.4-10.2); Carbon Dioxide 32 mmol/L (22.0-30.0); Estimated Glomerular Filt Rate 73 ml/min (>60); GFR (African American) 89 ML/MIN (>60); Glucose 169 mg/dl (74-100); Phosphorous 4.9 mg/dl (2.5-4.5)
== END ==
PROVIDERS: PCP Emergency Medicine; Referring Provider Internal Medicine Nephrology; Visit Provider Orthopaedic Surgery
DX: M25.562 Pain in left knee (principal); R80.9 Proteinuria, unspecified; Z96.652 Presence of left artificial knee joint
CPT/HCPCS: 36415; 73562; 80069; 85025

== ENCOUNTER → 2022-09-25 11:17 | Outpatient (CLI) | payer MEDICAID, SELFPAY ==
[2022-09-25 11:24] LABS: Microscopic, Urine URINE MICROSCOPIC (MICROSCOPIC)
[2022-09-25 14:21] LABS: Total Protein,Urine Random < 5.0 mg/dL (0.0-12.0)
[2022-09-25 14:34] LABS: Creatinine,Urine Random 118 mg/dL (Not Estab.)
[2022-09-25 17:04] LABS: Appearance,Urine CLEAR (Clear); Bilirubin,Urine Negative (Negative); Blood, Urine Negative (Negative); Color,Urine YELLOW (Yellow); Glucose,Urine (UA) Negative (Negative); Ketones,Urine Negative (Negative); Leukocyte Esterase,Urine Negative (Negative); Nitrate,Urine Negative (Negative); PH,Urine 7.5 (5.0-8.5); Protein,Urine TRACE (Negative); Urobilinogen,Urine 0.2 EU/dl (0.2)
[2022-09-25 17:09] LABS: WBC,Urine Occasional #/hpf (0-3)
== END ==
PROVIDERS: PCP Emergency Medicine; Visit Provider Internal Medicine Nephrology
DX: Z01.812 Encounter for preprocedural laboratory examination (principal)
CPT/HCPCS: 81001; 82570; 84155

== ENCOUNTER → 2022-09-25 11:45 | Outpatient (POV) | payer MEDICAID, SELFPAY | PROVIDERS: Visit Provider Internal Medicine Nephrology | DX: Z00.00 Encounter for general adult medical examination without abnormal findings (principal) ==

== ENCOUNTER 2022-10-27 09:00 | Outpatient (RCR) | payer MEDICAID, SELFPAY ==
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
== END 2022-11-03 08:50 | disposition home or self-care (01) ==
LOC: PT 09:00
PROVIDERS: PCP Emergency Medicine; Visit Provider Orthopaedic Surgery
DX: M25.562 Pain in left knee (principal); Z96.652 Presence of left artificial knee joint
CPT/HCPCS: 97010; 97014; 97110; 97116; 97140; 97163; 97164; 97530; G0283

== ENCOUNTER → 2022-10-29 09:26 | Outpatient (CLI) | payer MEDICAID, SELFPAY ==
--- NOTE | 2022-10-29 09:38 | XR_ITS ---
FINAL REPORT CLINICAL HISTORY: left knee pain COMPARISON: 09/24/2022 FINDINGS: LEFT KNEE 3 views of the left knee were obtained. Post arthroplasty changes are present in the left knee. No acute abnormality is identified. There is no acute fracture or dislocation. Visualized joint spaces are normally aligned. Soft tissues are unremarkable. IMPRESSION: No acute bony abnormality. Post arthroplasty changes again noted left knee Reviewed, Interpreted and Dictated by Lata Zhong MD Transcribed by Carolynn Pompa Authenticated and [facility]
== END ==
PROVIDERS: PCP Emergency Medicine; Visit Provider Orthopaedic Surgery
DX: M25.562 Pain in left knee (principal); Z09 Encounter for follow-up examination after completed treatment for conditions other than malignant neoplasm
CPT/HCPCS: 73562

== ENCOUNTER 2022-11-17 14:55 | Emergency (ER) | payer MEDICAID, SELFPAY ==
[2022-11-17 14:56] VITALS: BP 152/94; PULSE 106; RESP 17; TEMP 36.6; O2SAT 100; BMI 31.7
[2022-11-17 15:14] LABS: Microscopic, Urine URINE MICROSCOPIC (MICROSCOPIC)
--- NOTE | 2022-11-17 15:29 | CT_ITS ---
PROCEDURE INFORMATION: Exam: CT Abdomen And Pelvis Without Contrast Exam date and time: 11/17/2022 4:27 PM Age: 57 years old Clinical indication: Abdominal pain; Flank; Right; Additional info: Possible kidney stone TECHNIQUE: Imaging protocol: Computed tomography of the abdomen and pelvis without contrast. Radiation optimization: All CT scans at this facility use at least one of these dose optimization techniques: automated exposure control; mA and/or kV adjustment per patient size (includes targeted exams where dose is matched to clinical indication); or iterative reconstruction. REPORTING DATA: Count of CT and Cardiac NM exams in prior 12 months: This patient has received 0 known CTs and 0 known cardiac nuclear medicine studies in the 12 months prior to the current study. COMPARISON: US LIVER 07/30/2021 9:19 AM FINDINGS: Lungs: No noncalcified pulmonary nodule. No focal consolidation Diaphragm: Small hiatal hernia Liver: Hepatomegaly 19 cm. Gallbladder and bile ducts: cholecystectomy Pancreas: Normal. No ductal dilation. Spleen: Borderline splenomegaly 13.5 cm. Adrenal glands: Normal. No mass. Kidneys and ureters: There is no evidence of renal or ureteral calcifications.. Stomach and bowel: No significant diverticulosis or diverticulitis Appendix: Normal appendix Intraperitoneal space: Unremarkable. No free air. No significant fluid collection. Vasculature: Unremarkable. No abdominal aortic aneurysm. Lymph nodes: Unremarkable. No enlarged lymph nodes. Urinary bladder: Unremarkable as visualized. Reproductive: Surgical resection of the uterus Bones/joints: Intramedullary michelle in the right femur. Spondylolysis at L5/S1 healed on the right. Unhealed on the left Soft tissues: Unremarkable. IMPRESSION: 1. There is no evidence of renal or ureteral calcifications.. 2. Hepatomegaly 19 cm. 3. Borderline splenomegaly 13.5 cm.
[2022-11-17 15:36] LABS: Basophils % 0.4 % (0.1-2.0); Eosinophils # 0.2 K/mm3 (0.0-0.4); Eosinophils % 1.7 % (0.1-12.0); Hematocrit 41.5 % (37.0-47.0); Hemoglobin 13.1 g/dL (12.2-16.2); Lymphocytes # 2.4 K/mm3 (0.7-4.5); Lymphocytes % 22.8 % (10-50); Mean Corpuscular HGB Conc 31.6 g/dL (31.8-35.4); Mean Corpuscular Hemoglobin 27.2 pg (27.0-31.2); Mean Corpuscular Volume 86.1 fl (81-99); Mean Platelet Volume 7.5 fl (7.4-10.4); Monocytes # 0.4 K/mm3 (0.1-1.0); Monocytes % 3.4 % (1.7-9.3); Neutrophils # 7.4 K/mm3 (1.8-7.8); Neutrophils % 71.6 % (37.0-80.0); Platelet Count 390 K/mm3 (142-424); Red Blood Count 4.82 M/mm3 (4.20-5.40); Red Cell Distribution Width 14.5 % (11.5-17.5); White Blood Count 10.3 K/mm3 (4.8-10.8)
[2022-11-17 15:38] LABS: Chloride 93 mmol/L (98-107); Potassium 4.1 mmoL/L (3.5-5.1); Sodium 132 mmol/L (136-145)
[2022-11-17 15:40] LABS: Appearance,Urine CLEAR (Clear); Bilirubin,Urine Negative (Negative); Blood, Urine Negative (Negative); Color,Urine YELLOW (Yellow); Glucose,Urine (UA) 3+ (Negative); Ketones,Urine Negative (Negative); Leukocyte Esterase,Urine Negative (Negative); Nitrate,Urine Negative (Negative); Protein,Urine Negative (Negative); Urobilinogen,Urine 0.2 EU/dl (0.2)
[2022-11-17 15:41] LABS: Anion Gap 20.1 mEq/L (5-15); Blood Urea Nitrogen 17 mg/dl (7-17); Calcium 9.1 mg/dl (8.4-10.2); Carbon Dioxide 23 mmol/L (22.0-30.0); Creatinine Clearance Estimated 81 mL/min (50-200); Estimated Glomerular Filt Rate 64 ml/min (>60); GFR (African American) 78 ML/MIN (>60)
[2022-11-17 15:46] LABS: Glucose 431 mg/dl (74-100)
--- NOTE | 2022-11-17 15:47 | PC.NURSE ---
critical glucose reported to OFELIA STEELE
[2022-11-17 15:52] LABS: Bacteria,Urine Trace /lpf; Squamous Epithelial Cell,Urine Occasional #/hpf (0-5); WBC,Urine Occasional #/hpf (0-3)
--- NOTE | 2022-11-17 16:35 | HMH.EDGENADL ---
Discharge Plan Disposition Patient Disposition: Home, Self-Care Prescriptions Prescriptions: New tramadol 50 mg tablet 50 mg PO Q8H PRN (Reason: pain) Qty: 30 0RF Referrals Follow up/Referrals: Cornelius Mcmanus MD [Primary Care Provider] - See instructions Clinical Impressions Clinical Impression: Back pain Instructions Patient Instructions: DI for Low Back Pain Discharge ED Provider: Basilio Daniels General Adult HPI General Chief complaint: Back Pain/Injury Stated complaint: Lower back pain Time Seen by Provider: 11/17/22 15:00 Mode of Arrival: Ambulatory Source of Information: Patient Limitations: No Limitations Description of Symptoms (Recalled from ER Triage Doc. by RN): 57 F presents from home with 6 days of right low back pain and right flank pain. Patient reports fever, chills, increased odor of her urine, and increased urinary frequency. Denies dysuria and hematuria. History of Present Illness HPI narrative: 57-year-old female presents with right lower back and flank pain for 6 days. She has a fever chills increased odor of the urine and increased urinary frequency. She denies history of kidney stones. Pain is constant mostly on the right lower back. No vaginal bleeding or discharge no diarrhea nausea vomiting headache or chest pain or shortness of air Related Data Previous Rx's Medication Instructions Recorded tramadol 50 mg tablet 50 mg PO Q8H PRN pain #30 tabs 11/17/22 Allergies Allergy/AdvReac Type Severity Reaction Status Date / Time metoprolol [From TOPROL XL] Allergy Unknown I-RASH Verified 10/29/22 10:10 diltiazem [From Cardizem] AdvReac nausea Verified 10/29/22 10:10 [facility] Disclaimer: The information contained in this section may have been updated after the patient was seen, as this information can be updated by other users. Medical History Anxiety Arrhythmia Chest pain Depression Diabetes mellitus, type 2 Edema RIGHT LEG Encounter for tubal ligation History of anemia History of cataract History of COVID-19 History of gastroesophageal reflux (GERD) Hyperlipidemia Hypertension Hypothyroid Murmur, heart SOB (shortness of breath) on exertion Surgical History H/O tubal ligation H/O: hysterectomy History of cholecystectomy History of surgery RIGHT LEG SX - PLATE History of surgery RIGHT JAW SX History of surgery RIGHT HIP SX - PINS Hx of left knee surgery Family History Father Heart attack Heart disease Mother Heart attack Heart disease Social History Smoking Status: Never smoker second hand exposure: No alcohol intake: never substance use type: denies use current occupational status: unemployed Travel in the last 8 weeks: None household members: family housing: house current occupation: [employer] current occupational exposures/hazards: No caffeine: No ROS Obtained: Yes All systems reviewed & no additional complaints except as documented Constitutional Constitutional: Denies fatigue Eyes Eyes: Denies diplopia ENT Ears, Nose, Mouth, and Throat: Denies dizziness Cardiovascular Cardiovascular: Denies leg edema Respiratory Respiratory: Denies cough Gastrointestinal Gastrointestingal: Denies diarrhea Genitourinary Female Genitourinary: Reports dysuria and Reports flank pain Musculoskeletal Musculoskeletal: Reports back pain Integumentary/Breasts Skin/Breast: Denies dry skin Neurologic Neurologic: Denies dizziness Endocrine Endocrine: Denies fatigue Hematologic/Lymphatic Henatologic/Lymphatic: Denies easy bleeding Allergic/Immunologic Allergic/Immunologic: Denies urticaria Physical Exam General General appearance: alert and in no apparent distress Eye Eye exam: Present PERRL and EOMI
[2022-11-17 16:52] VITALS: BP 121/75; PULSE 72; O2SAT 96
--- NOTE | 2022-11-17 16:56 | PC.NURSE ---
rounded on pt, pt states no needs at this time, visitor at [facility]
[2022-11-17 17:36] VITALS: BP 141/87; PULSE 84; RESP 17; TEMP 36.8; O2SAT 98
[2022-11-18 10:57] LABS: Alanine Aminotransferase 56 U/L (12-78); Albumin Level 4.1 g/dl (3.5-5.0); Albumin/Globulin Ratio 1.2 (1.1-1.8); Alkaline Phosphatase 91 U/L (38-126); Anion Gap 18.3 mEq/L (5-15); Aspartate Amino Transferase 64 U/L (14-36); Bilirubin,Total 0.4 mg/dl (0.2-1.3); Blood Urea Nitrogen 17 mg/dl (7-17); Calcium 9.2 mg/dl (8.4-10.2); Carbon Dioxide 25 mmol/L (22.0-30.0); Chloride 94 mmol/L (98-107); Chol/HDL Ratio 5.6 (1-3.5); Cholesterol 217 mg/dl (140-200); Creatinine Clearance Estimated 91 mL/min (50-200); Estimated Glomerular Filt Rate 73 ml/min (>60); GFR (African American) 89 ML/MIN (>60); Globulin 3.4 g/dL (1.3-3.2); HDL Cholesterol 39 mg/dl (40-60); Potassium 4.3 mmoL/L (3.5-5.1); Sodium 133 mmol/L (136-145); Total Protein,Serum 7.5 g/dl (6.3-8.2); Triglycerides 236 mg/dl (30-150); VLDL Cholesterol 47 mg/dL (0-40)
[2022-11-18 11:08] LABS: Direct LDL Cholesterol 121.96 mg/dL (100-129); Glucose 452 mg/dl (74-100)
[2022-11-18 11:15] LABS: T4 (Thyroxine) 8.1 ug/dl (5.53-11.0)
[2022-11-18 11:28] LABS: Thyroid Stimulating Hormone 3.55 uIU/mL (0.465-4.68)
[2022-11-18 11:38] LABS: Hemoglobin A1C 9.5 % (4.0-6.0)
[2022-11-18 13:50] LABS: Microalbumin/Creatinine Ratio 12.5
[2022-11-18 13:51] LABS: Creatinine,Urine Random 62 mg/dL (Not Estab.)
== END 2022-11-17 17:38 | disposition home or self-care (01) ==
PROVIDERS: Emergency Provider Emergency Medicine; PCP Emergency Medicine
DX: E11.9 Type 2 diabetes mellitus without complications (principal); M54.50 Low back pain, unspecified; R10.9 Unspecified abdominal pain; R50.9 Fever, unspecified; R35.0 Frequency of micturition; K76.0 Fatty (change of) liver, not elsewhere classified; I10 Essential (primary) hypertension; E78.5 Hyperlipidemia, unspecified; E03.9 Hypothyroidism, unspecified; R01.1 Cardiac murmur, unspecified; F41.9 Anxiety disorder, unspecified; F32.A Depression, unspecified
CPT/HCPCS: 74176; 80048; 80053; 80061; 81001; 82043; 82570; 83036; 84436; 84443; 85025; 96361; 96374; 96375; 99284; 99285; J2405